=== PATIENT | male | born 1975 | race Two or more races ===

== ENCOUNTER 2019-01-21 10:07 | Emergency (ER) | payer SELFPAY ==
--- NOTE | 2019-01-21 11:29 | EDM.PDOC ---
ED HPI GENERAL MEDICAL PROBLEM - General Chief Complaint: Lower Extremity Injury/Pain Stated Complaint: HIP PAIN Time Seen by Provider: 01/21/19 10:39 Source of Information: Reports: Patient, RN Notes Reviewed - History of Present Illness INITIAL COMMENTS - FREE TEXT/NARRATIVE: 43-year-old male comes in with discomfort, left hip for 4 days. Actually upon further questioning the pain is primarily the outside and posterior aspect of the hip, especially over the tibial tuberosity area of his pelvis and buttock on the left. He did start running on a treadmill about 7 ago, walking and running hard at times. He has stopped doing that but the pain has not gone away. No pain at rest but severe pain with standing and especially walking and any other type of motion. He has never done anything like this before. Left Hip Pain Score (Numeric/FACES): 9 - Related Data Allergies Allergy/AdvReac Type Severity Reaction Status Date / Time No Known Allergies Allergy Verified 01/21/19 10:20 Home Meds: Home Meds Acetaminophen/HYDROcodone [[place] 325-5 MG] 1 tab PO Q8HR PRN #14 tablet [Rx] Past Medical History Musculoskeletal History: Reports: Fracture Neurological History: Reports: Headaches, Chronic - Infectious Disease History Infectious Disease History: Reports: Chicken Pox Social & Family History - Tobacco Use Smoking Status *Q: Current Every Day Smoker Years of Tobacco use: 24 Packs/Tins Daily: 0.5 Second Hand Smoke Exposure: No - Caffeine Use Caffeine Use: Reports: Coffee - Recreational Drug Use Recreational Drug Use: No Review of Systems - Review of Systems Review Of Systems: See Below Respiratory: Denies: Shortness of Breath Cardiovascular: Denies: Chest Pain Musculoskeletal: Reports: Back Pain, Joint Pain (Left hip), Other Skin: Reports: No Symptoms (Inferior buttock area) Neurological: Denies: Numbness, Tingling ED EXAM, GENERAL - Physical Exam Exam: See Below General Appearance: Alert, Mild Distress Head: Atraumatic Neck: Supple Extremities: Other (Tender left lateral hip, left posterior buttock especially over the icheal tuberosity). No: Joint Swelling Neurological: Alert, No Motor/Sensory Deficits Skin Exam: Warm, Dry Course - Vital Signs Last Recorded V/S: Last Vital Signs Temp 97.4 F 01/21/19 11:40 Pulse 82 03/21/19 11:40 Resp 20 01/21/19 11:40 BP 108/72 01/21/19 11:40 Pulse Ox 100 01/21/19 11:40 - Re-Assessments/Exams Free Text/Narrative Re-Assessment/Exam: 01/21/19 19:21 X-ray of the left hip and pelvis is normal Departure - Departure Time of Disposition: 11:26 Disposition: Home, Self-Care 01 Condition: Fair Clinical Impression: Trochanteric bursitis of left hip - Discharge Information Prescriptions: Acetaminophen/HYDROcodone [[place] 325-5 MG] 1 tab PO Q8HR PRN #14 tablet PRN Reason: Pain Instructions: Trochanteric Bursitis Referrals: PCP,None [Primary Care Provider] - Forms: ED Department Discharge Additional Instructions: Rest leg and hip, increase activity slowly as tolerated, Advil or ibuprofen 600 mg 3 times daily with food, you may take Tylenol in between doses for extra pain relief or hydrocodone if needed for severe pain, do not drive when taking hydrocodone. Also alternating ice and heat to area of discomfort will help. Follow-up at our [facility] medical clinic if not much better within 3-5 days as expected, call [phone] if needed for appointment.
--- NOTE | 2019-01-21 11:45 | CR ---
Pelvis and left hip: AP view of the pelvis was obtained as well as AP and frog-leg lateral views of the left hip. Comparison: No prior study. Joint spaces within both hips are maintained. Sacroiliac joints appear within normal limits. No fracture or other bony abnormality is seen. Impression: 1. No abnormality is identified on AP pelvis or on two-view left hip exam. Diagnostic code #1
== END 2019-01-21 11:40 | disposition home or self-care (01) ==
LOC: JD.ED 10:07
DX: M70.62 Trochanteric bursitis, left hip (principal); F17.210 Nicotine dependence, cigarettes, uncomplicated
CPT/HCPCS: 73502-26-LT; 73502-LT; 99283; 99283-25

== ENCOUNTER 2020-04-13 18:28 | Inpatient (IN) | payer MEDICAID ==
[2020-04-13] MEDS ORDERED: Sodium Chloride 0.9% 10 ML Syringe FLUSH PRN (18:42)
[2020-04-13] MEDS ORDERED: Diphtheria,Pertussis(Acell),Tetanus Vaccine 0.5 ML Syringe IM ONE (18:44)
[2020-04-13] MEDS ORDERED: Lactated Ringers 1,000 ML IV SCH (18:45)
[2020-04-13] MEDS ORDERED: Lactated Ringers 1,000 ML IV ONE (18:46)
--- NOTE | 2020-04-13 18:54 | EDM.PDOC ---
ED HPI GENERAL MEDICAL PROBLEM - General Source of Information: Reports: Patient, EMS History Limitations: Reports: No Limitations - History of Present Illness Onset: Sudden Duration: Minutes: Location: Reports: Head Quality: Reports: Sharp Severity: Moderate Improves with: Reports: None Worsens with: Reports: None Associated Symptoms: Reports: Headaches. Denies: Chest Pain, Cough, Fever/ Chills, Nausea/Vomiting, Shortness of Breath Head Pain Score (Numeric/FACES): 10 <Ravinder Segura - Last Filed: 04/13/20 19:19> <Jerod Philippe - Last Filed: 04/14/20 04:03> - General Chief Complaint: Head Injury Stated Complaint: [facility] Time Seen by Provider: 04/13/20 18:42 - History of Present Illness INITIAL COMMENTS - FREE TEXT/NARRATIVE: The patient presents by [facility] for a head injury. He walked into a local hotel and collapsed hitting his head. He has a laceration to the right eyebrow. He was out for about 5 minutes. When he woke up he was agitated and shaking. Family that were there say he drinks heavily and daily and he may not have had a drink in a couple of days. He has a headache now. He is not sure of his tetanus. He has no fever, chills, cough, chest pain, abdominal pain, nausea or vomiting. (Ravinder Segura) - Related Data Allergies Allergy/AdvReac Type Severity Reaction Status Date / Time No Known Allergies Allergy Verified 04/13/20 18:40 Home Meds: Home Meds . [No Known Home Meds] 04/13/20 [History] Past Medical History HEENT History: Reports: None Cardiovascular History: Reports: None Respiratory History: Reports: None Gastrointestinal History: Reports: None Genitourinary History: Reports: None Musculoskeletal History: Reports: Fracture Neurological History: Reports: Headaches, Chronic Psychiatric History: Reports: Addiction Endocrine/Metabolic History: Reports: None Hematologic History: Reports: None Immunologic History: Reports: None Oncologic (Cancer) History: Reports: None Dermatologic History: Reports: None - Infectious Disease History Infectious Disease History: Reports: Chicken Pox <Ravinder Segura - Last Filed: 04/13/20 19:19> Social & Family History - Tobacco Use Smoking Status *Q: Never Smoker - Caffeine Use Caffeine Use: Reports: None - Recreational Drug Use Recreational Drug Use: No <Ravinder Segura - Last Filed: 04/13/20 19:19> ED ROS GENERAL - Review of Systems Review Of Systems: See Below Constitutional: Reports: No Symptoms HEENT: Reports: Other (4cm laceration to the right eyebrow) Respiratory: Reports: No Symptoms Cardiovascular: Reports: No Symptoms Endocrine: Reports: No Symptoms GI/Abdominal: Reports: No Symptoms : Reports: No Symptoms Musculoskeletal: Reports: No Symptoms Neurological: Reports: Other (shaking) <Ravinder Segura - Last Filed: 04/13/20 19:19> ED EXAM, HEAD INJURY - Physical Exam Exam: See Below Exam Limited By: No Limitations General Appearance: Alert, No Apparent Distress Head: Normocephalic, Other (3cm laceration to the right eyebrow) Eyes: Bilateral Eye: EOMI Ears: Normal External Exam Nose: Normal Inspection Neck: Non-Tender, Normal Alignment, Normal Inspection Respiratory: No Respiratory Distress, Lungs Clear, Normal Breath Sounds Cardiovascular: Regular Rate, Rhythm, No Edema, No Murmur GI/Abdominal Exam: Soft, Non-Tender, No Organomegaly, No Mass Neurologic: Alert, Other (He is a little confused and he is shaking) <Ravinder Segura - Last Filed: 04/13/20 19:19> Course <Ravinder Segura - Last Filed: 04/13/20 19:19> <Jerod Philippe - Last Filed: 04/14/20 04:03> - Vital Signs Last Recorded V/S: Last Vital Signs Temp 35.4 C L 04/13/20 18:34 Pulse 100 04/13/20 23:00 Resp 15 04/13/20 22:18 BP 114/87 04/13/20 18:34 Pulse Ox 100 04/13/20 23:00 - Orders/Labs/Meds Orders: Active Orders 24 hr Category Date Time Status Cardiac Monitoring [RC] . DIRECTED Care 04/13/20 18:43 Active EKG Documentation Completion [RC] ASDIRECTED Care 04/13/20 18:51 Active Peripheral IV Care [RC] . DIRECTED Care 04/13/20 18:43 Active Vaccines to be Administered [RC] PER UNIT ROUTINE Care 04/13/20 18:44 Active Sodium Chloride 0.9% [Saline Flush] Med 04/13/20 18:42 Active 10 ml FLUSH ASDIRECTED PRN Peripheral IV Insertion Adult [OM.PC] Stat Oth 04/13/20 18:42 Ordered EKG 12 Lead [EK] Stat Ther 04/13/20 18:50 Ordered Medication Orders Sodium Chloride (Saline Flush) 10 ml FLUSH ASDIRECTED PRN PRN Reason: Keep Vein Open Last Admin: 04/13/20 21:37 Dose: 10 ml Labs: Laboratory Tests 04/13/20 04/13/20 04/14/20 Range/Units 19:10 19:10 00:30 WBC 8.17 (4.23-9.07) K/mm3 RBC 4.58 L (4.63-6.08) M/mm3 Hgb 14.9 (13.7-17.5) gm/dl Hct 43.6 (40.1-51.0) % MCV 95.2 H (79.0-92.2) fl MCH 32.5 H (25.7-32.2) pg MCHC 34.2 (32.2-35.5) g/dl RDW Std Deviation 47.1 H (35.1-43.9) fL Plt Count 143 L (163-337) K/mm3 MPV 11.0 (9.4-12.3) fl Neut % (Auto) 76.0 H (34.0-67.9) % Lymph % (Auto) 14.9 L (21.8-53.1) % [place] % (Auto) 8.3 (5.3-12.2) % Eos % (Auto) 0.2 L (0.8-7.0) Baso % (Auto) 0.4 (0.1-1.2) % Neut # (Auto) 6.20 H (1.78-5.38) K/mm3 Lymph # (Auto) 1.22 L (1.32-3.57) K/mm3 [place] # (Auto) 0.68 (0.30-0.82) K/mm3 Eos # (Auto) 0.02 L (0.04-0.54) K/mm3 Baso # (Auto) 0.03 (0.01-0.08) K/mm3 Sodium 141 (136-145) mEq/L Potassium 3.9 (3.5-5.1) mEq/L Chloride 104 (98-107) mEq/L Carbon Dioxide 20 L (21-32) mEq/L Anion Gap 20.9 H (5-15) BUN 15 (7-18) mg/dL Creatinine 1.4 H (0.7-1.3) mg/dL Est Cr Clr Drug Dosing 68.69 mL/min Estimated GFR (MDRD) 55 (>60) mL/min BUN/Creatinine Ratio 10.7 L (14-18) Glucose 158 H (74-106) mg/dL Calcium 9.2 (8.5-10.1) mg/dL Magnesium 2.3 (1.8-2.4) mg/dl Total Bilirubin 1.1 H (0.2-1.0) mg/dL AST 284 H (15-37) U/L ALT 297 H (16-63) U/L Alkaline Phosphatase 80 (46-116) U/L Total Protein 7.4 (6.4-8.2) g/dl Albumin 3.9 (3.4-5.0) g/dl Globulin 3.5 gm/dL Albumin/Globulin Ratio 1.1 (1-2) Urine Opiates Screen Negative (UIDKTT=352) Ur Buprenorphine Scrn Negative (CUTOFF=10) Ur Oxycodone Screen Negative (TXE1OY=747) Urine Methadone Screen Negative (QUO6NE=316) Ur Propoxyphene Screen Negative (YWOSWS=960) Ur Barbiturates Screen Negative (TCPRVO=104) Ur Tricyclics Screen Negative (AESVNU=799) Ur Phencyclidine Scrn Negative (CUTOFF=25) Ur Amphetamine Screen Negative (WAWACZ=182) U Methamphetamines Scrn Negative (WYTVZA=778) U Benzodiazepines Scrn Presumptive positive H (DYXJWH=954) U Cocaine Metab Screen Negative (MIZJZS=767) U Marijuana (THC) Screen Negative (CUTOFF=50) Ethyl Alcohol 0.00 (0.00) gm% Meds: Medications Generic Name Dose Route Start Last Admin Trade Name Freq PRN Reason Stop Dose Admin Sodium Chloride 10 ml 04/13/20 18:42 04/13/20 21:37 Saline Flush FLUSH 10 ml ASDIRECTED PRN Administration Keep Vein Open Discontinued Medications Generic Name Dose Route Start Last Admin Trade Name Freq PRN Reason Stop Dose Admin Diphenhydramine HCl 50 mg 04/13/20 20:02 04/13/20 20:02 Benadryl IVPUSH 04/13/20 20:03 50 mg ONETIME ONE Administration Diphenhydramine HCl Confirm 04/13/20 20:02 04/13/20 21:37 Benadryl Administered 04/13/20 20:03 Not Given Dose 50 mg .ROUTE .STK-MED ONE Diphenhydramine HCl 50 mg 04/14/20 03:29 Benadryl IVPUSH 04/14/20 03:30 ONETIME ONE Diphtheria/Tetanus/Acell Pertussis 0.5 ml 04/13/20 18:44 Adacel IM 04/13/20 18:45 .ONCE ONE Lactated Ringer's 1,000 mls @ 125 mls/hr 04/13/20 18:45 Ringers, Lactated IV ASDIRECTED CITLALLI Lactated Ringer's 1,000 mls @ 1,000 mls/hr 04/13/20 18:46 04/13/20 19:25 Ringers, Lactated IV 04/13/20 19:45 1,000 mls/hr .BOLUS ONE Administration Lidocaine HCl Confirm 04/14/20 00:41 Xylocaine 1% Administered 04/14/20 00:42 Dose 10 ml .ROUTE .STK-MED ONE Lorazepam 2 mg 04/13/20 19:29 04/13/20 19:34 Ativan IVPUSH 04/13/20 19:30 2 mg ONETIME ONE Administration Lorazepam Confirm 04/13/20 19:28 04/13/20 19:34 Ativan Administered 04/13/20 19:29 Not Given Dose 2 mg .ROUTE .STK-MED ONE Lorazepam 2 mg 04/13/20 19:49 04/13/20 19:52 Ativan IVPUSH 04/13/20 19:50 2 mg ONETIME ONE Administration Lorazepam 2 mg 04/13/20 21:35 04/13/20 19:47 Ativan IVPUSH 04/13/20 21:36 2 mg ONETIME ONE Administration Lorazepam 2 mg 04/14/20 02:05 04/14/20 03:03 Ativan IVPUSH 04/14/20 02:06 2 mg ONETIME ONE Administration Lorazepam Confirm 04/14/20 02:06 Ativan Administered 04/14/20 02:07 Dose 2 mg .ROUTE .STK-MED ONE Lorazepam Confirm 04/14/20 03:51 Ativan Administered 04/14/20 03:52 Dose 4 mg .ROUTE .STK-MED ONE Midazolam HCl Confirm 04/14/20 03:42 Versed 1 Mg/Ml Administered 04/14/20 03:43 Dose 2 mg .ROUTE .STK-MED ONE Midazolam HCl Confirm 04/14/20 03:45 Versed 1 Mg/Ml Administered 04/14/20 03:46 Dose 4 mg .ROUTE .STK-MED ONE Olanzapine 5 mg 04/13/20 19:51 04/13/20 19:51 Zyprexa IM 04/13/20 19:52 5 mg ONETIME ONE Administration Olanzapine Confirm 04/13/20 19:51 04/13/20 21:37 Zyprexa Administered 04/13/20 19:52 Not Given Dose 10 mg .ROUTE .STK-MED ONE Olanzapine 5 mg 04/14/20 02:05 04/14/20 03:03 Zyprexa IM 04/14/20 02:06 5 mg ONETIME ONE Administration - Re-Assessments/Exams Free Text/Narrative Re-Assessment/Exam: 04/13/20 18:54 I ordered an IV LR 1L bolus, CT, labs and I will suture the laceration. 04/13/20 19:19 It is change of shift, Dr Philippe to take over. (Ravinder Segura) Free Text/Narrative Re-Assessment/Exam: 04/14/20 01:49 The burst laceration of the patient's face in the area of his right eyebrow was sutured. After preparation anesthesia with 8 mL of plain 1% lidocaine. Sterile technique. Closure with 3 simple interrupted 4-0 black nylon sutures. Patient tolerated well. No complications. The patient's movement and poor cooperation mitigated against more fastidious plastic closure. (Jerod Philippe) Free Text/Narrative Re-Assessment/Exam: 04/14/20 04:01 Would appear that the patient is withdrawing from alcohol and has been in full- blown delirium tremens. Drug screen is essentially negative and there is a possibility that he may be under the influence of something undetectable. In any event he has been managed in the emergency department with a view to being able to discharge him to home but he continues to require constant attention and frequent sedation. Discussed with Dr. Jacome. She will admit him to the ICU for further management. Discussed with the patient's father present at bedside who agrees with the plan. (Jerod Philippe) Departure <Ravinder Segura - Last Filed: 04/13/20 19:19> - Departure Time of Disposition: 04:02 Condition: Poor <Jerod Philippe - Last Filed: 04/14/20 04:03> - Departure Disposition: Admitted As Inpatient 67 Clinical Impression: Delirium tremens, Alcohol abuse Laceration of face Qualifiers: Encounter type: initial encounter Qualified Code(s): S01.81XA - Laceration without foreign body of other part of head, initial encounter - Discharge Information Referrals: PCP,None [Primary Care Provider] - Forms: ED Department Discharge Sepsis Event Note (ED) - Evaluation Sepsis Screening Result: No Definite Risk <Ravinder Segura - Last Filed: 04/13/20 19:19> - Focused Exam Vital Signs: Vital Signs Temp Pulse Pulse Resp BP Pulse Ox 04/13/20 23:00 100 100 04/13/20 22:18 94 15 100 04/13/20 22:00 103 H 17 100 04/13/20 21:00 101 H 17 99 04/13/20 20:27 132 H 19 96 04/13/20 18:34 35.4 C L 144 H 24 H 114/87 96
--- NOTE | 2020-04-13 19:22 | CT ---
Head CT Technique: Multiple axial sections through the brain were obtained. Intravenous contrast was not utilized. Comparison: No prior intracranial imaging is available. Limitations: Motion artifact is noted. Findings: Ventricles along with basal cisterns and sulci over the convexities appear within normal limits for the patient's age. No abnormal parenchymal densities are seen. No evidence of intracranial hemorrhage. No midline shift or mass-effect is seen. Bone window settings were reviewed which shows no discrete calvarial abnormality. Visualized paranasal sinuses and mastoid sinuses show nothing acute. Impression: 1. Motion artifact. Within this limitation, nothing acute is definitely appreciated on noncontrast head CT exam. Diagnostic code #2 This report was dictated in MDT
[2020-04-13] MEDS ORDERED: LORazepam 2 MG/ML SDV ONE (19:28)
[2020-04-13] MEDS ORDERED: LORazepam 2 MG/ML SDV IVPUSH ONE ×3 (19:29→21:35)
[2020-04-13] MEDS ORDERED: OLANZapine 10 MG Vial ONE (19:51)
[2020-04-13] MEDS ORDERED: OLANZapine 10 MG Vial IM ONE (19:51)
[2020-04-13] MEDS ORDERED: diphenhydrAMINE 50 MG/ML SDV IVPUSH ONE (20:02)
[2020-04-13] MEDS ORDERED: diphenhydrAMINE 50 MG/ML SDV ONE (20:02)
[2020-04-14] MEDS ORDERED: Lidocaine 1% 10 ML MDV ONE (00:41)
[2020-04-14] MEDS ORDERED: LORazepam 2 MG/ML SDV IVPUSH ONE ×3 (02:05→14:00)
[2020-04-14] MEDS ORDERED: OLANZapine 10 MG Vial IM ONE (02:05)
[2020-04-14] MEDS ORDERED: LORazepam 2 MG/ML SDV ONE ×2 (02:06→03:51)
[2020-04-14] MEDS ORDERED: diphenhydrAMINE 50 MG/ML SDV IVPUSH ONE (03:29)
[2020-04-14] MEDS ORDERED: Midazolam 1 MG/ML 2 ML SDV ONE ×2 (03:42→03:45)
[2020-04-14] MEDS ORDERED: Midazolam 1 MG/ML 2 ML SDV IVPUSH ONE ×2 (04:01→09:14)
[2020-04-14] MEDS: LORazepam 2 MG/ML SDV IVPUSH PRN ×3 (07:41→08:30)
[2020-04-14] MEDS ORDERED: Ondansetron 4 MG/2 ML SDV IV PRN (08:32)
[2020-04-14] MEDS ORDERED: Etomidate 2 MG/ML 20 ML SDV IVPUSH ONE ×3 (09:19→14:05)
[2020-04-14] MEDS ORDERED: Succinylcholine 200 MG/10 ML MDV IV ONE (09:20)
[2020-04-14] MEDS ORDERED: MAGNESIUM SULFATE IV ONE (09:30)
[2020-04-14] MEDS ORDERED: FOLIC ACID IV ONE (09:30)
[2020-04-14] MEDS ORDERED: THIAMINE IV ONE (09:30)
[2020-04-14] MEDS ORDERED: [UNRECOGNIZED DRUG - OTHER] IV ONE (09:30)
[2020-04-14] MEDS ORDERED: Ketamine 500 mg/10 ML MDV IV ONE ×2 (09:38→14:05)
[2020-04-14] MEDS ORDERED: Midazolam 1 MG/ML 5 ML SDV IVPUSH ONE ×2 (09:38→14:00)
[2020-04-14] MEDS: fentaNYL 100 MCG/2 ML SDV IVPUSH ONE ×2 (09:38→13:10)
[2020-04-14] MEDS: fentaNYL 2500 MCG in Normal Saline 250 ML IV SCH ×2 (09:44→22:10)
[2020-04-14] MEDS: Midazolam 100 MG in Premix Bag 1 BAG IV SCH ×2 (09:45→18:39)
--- NOTE | 2020-04-14 09:58 | CR ---
Chest: AP view of the chest was obtained. Comparison: No prior chest imaging is available. Endotracheal tube is seen. Tip lies at the lower level of the clavicles. Nasogastric tube is seen. Tip of the nasogastric tube lies at the gastroesophageal junction or possibly above the gastroesophageal junction. Heart size and mediastinum are normal. Lungs are clear with no acute parenchymal change. Impression: 1. Satisfactory position of endotracheal tube. 2. Nasogastric tube at the gastroesophageal junction or possibly slightly above. Diagnostic code #3 This report was dictated in MDT
[2020-04-14] MEDS: Nicotine 21 MG/24 Hr Patch TRDERM SCH (10:42)
[2020-04-14] MEDS: Enoxaparin 40 MG/0.4 ML Syringe SUBCUT SCH (10:42)
--- NOTE | 2020-04-14 10:42 | PCM.PRNOTE ---
- Free Text/Narrative Note: Endotracheal Intubation Date: 04/14/2020 Indication: Airway protection due to high requirement of sedation medications for alcohol withdrawal symptoms Attending: Ivis Jacome MD A time-out was completed verifying correct patient, procedure, site, positioning , and special equipment if applicable. The patient was placed in a flat position. Sedation was obtained using Etomidate and Succinylcholine. The patient was easily ventilated using an Ambu bag. The MAC 4 BLADE was used and inserted into the oropharynx at which time there was a Grade 1 view of the vocal cords. A 7-cameroonian endotracheal tube was inserted and visualized going through the vocal cords. The stylette was removed. Colorimetric change was visualized on the CO2 meter. Breath sounds were heard in both lung tyler equally. The endotracheal tube was placed at 25 cm, measured at the teeth. A chest x-ray was ordered to assess forpneumothoraxand verifyendotracheal tube placement. Repositioned at 24cm at teeth. Estimated Blood Loss: None The patient tolerated the procedure well and there were no complications.
--- NOTE | 2020-04-14 10:42 | PCM.HP.2 ---
H&P History of Present Illness - General Date of Service: 04/14/20 Admit Problem/Dx: Admission Diagnosis/Problem Admission Diagnosis/Problem Alcohol abuse with alcohol-induced disorder - History of Present Illness Initial Comments - Free Text/Narative: The patient presents by [facility] for a head injury. He walked into a local hotel and collapsed hitting his head. He has a laceration to the right eyebrow. He was out for about 5 minutes. When he woke up he was agitated and shaking. Dad states patient has been drinking at least 300 beers in the past 3 weeks, he did notice his hands shaking a couple of days ago and asked him what was happening patient stated all was ok. He did not see any more shaking the day after. Head Pain Score (Numeric/FACES): 10 - Related Data Allergies/Adverse Reactions: Allergies Allergy/AdvReac Type Severity Reaction Status Date / Time No Known Allergies Allergy Verified 04/13/20 18:40 Home Medications: Home Meds . [No Known Home Meds] 04/13/20 [History] Past Medical History HEENT History: Reports: None Cardiovascular History: Reports: None Respiratory History: Reports: None Gastrointestinal History: Reports: None Genitourinary History: Reports: None Musculoskeletal History: Reports: Fracture Neurological History: Reports: Headaches, Chronic Psychiatric History: Reports: Addiction Endocrine/Metabolic History: Reports: None Hematologic History: Reports: None Immunologic History: Reports: None Oncologic (Cancer) History: Reports: None Dermatologic History: Reports: None - Infectious Disease History Infectious Disease History: Reports: Chicken Pox Social & Family History - Tobacco Use Smoking Status *Q: Never Smoker - Caffeine Use Caffeine Use: Reports: None - Recreational Drug Use Recreational Drug Use: No H&P Review of Systems - Review of Systems: Review Of Systems: Unable To Obtain Reason Not Obtained: severe agitation due to alcohol withdrawal Exam - Exam Exam: See Below - Vital Signs Vital Signs: Last Vital Signs Temp 97 F 04/14/20 08:00 Pulse 100 04/13/20 23:00 Resp 14 04/14/20 08:00 BP 105/79 04/14/20 08:00 Pulse Ox 97 04/14/20 09:46 Weight: 67.585 kg - Exam General: Lethargic. No: Cooperative HEENT: Mucosa Moist & [place]. No: Conjunctiva Clear (injected) Neck: Supple, Trachea Midline Lungs: Decreased Breath Sounds, Crackles. No: Rales, Rhonchi, Rub, Stridor, Wheezing Cardiovascular: Regular Rhythm, Tachycardia. No: Systolic Murmur, Diastolic Murmur, Rubs, Gallop/S3, Gallop/S4 GI/Abdominal Exam: Soft, Non-Tender. No: Distended, Guarding, Rigid, Rebound Extremities: Normal Inspection, No Pedal Edema, Normal Capillary Refill Neuro Extensive - Mental Status: Other (CIWAA 42) - Patient Data Result Diagrams: 04/14/20 08:48 04/14/20 08:48 Sepsis Event Note - Evaluation Sepsis Screening Result: No Definite Risk - Problem List (1) Alcohol withdrawal delirium, acute, hyperactive SNOMED Code(s): 2997557, 03019750, 70309690865110349 ICD Code: F10.231 - ALCOHOL DEPENDENCE WITH WITHDRAWAL DELIRIUM Status: Acute Current Visit: Yes (2) Alcohol abuse SNOMED Code(s): 94883954 ICD Code: F10.10 - ALCOHOL ABUSE, UNCOMPLICATED Status: Acute Current Visit: Yes (3) Delirium tremens SNOMED Code(s): 0063880 ICD Code: F10.231 - ALCOHOL DEPENDENCE WITH WITHDRAWAL DELIRIUM Status: Acute Current Visit: Yes (4) Laceration of face SNOMED Code(s): 520658670 ICD Code: S01.81XA - LACERATION W/O FOREIGN BODY OF OTH PART OF HEAD, INIT ENCNTR Status: Acute Current Visit: Yes Qualifiers: Encounter type: initial encounter Qualified Code(s): S01.81XA - Laceration without foreign body of other part of head, initial encounter (5) Thrombocytopenia SNOMED Code(s): 059048747 ICD Code: D69.6 - THROMBOCYTOPENIA, UNSPECIFIED Status: Acute Current Visit: Yes (6) High anion gap metabolic acidosis SNOMED Code(s): 37229170 ICD Code: E87.2 - ACIDOSIS Status: Acute Current Visit: Yes (7) Acute kidney injury SNOMED Code(s): 67518041, 64784792 ICD Code: N17.9 - ACUTE KIDNEY FAILURE, UNSPECIFIED Status: Acute Current Visit: Yes (8) Abnormal LFTs SNOMED Code(s): 142617466 ICD Code: R94.5 - ABNORMAL RESULTS OF LIVER FUNCTION STUDIES Status: Acute Current Visit: Yes Problem List Initiated/Reviewed/Updated: Yes Assessment/Plan Comment:: PLAN BY SYSTEMS: Neurology: CIWAA protocol with PRN Ativan Frequent neurologic exams by nursing staff. Respiratory: Aspiration precautions Cardiovascular: IVF repletion Banana bag today. GI and Nutrition: NPO Kidney and Electrolytes: Strict monitoring of intake, output and overall fluid balance. Maintain neutral as possible. Avoid nephrotoxic medications. Medications to be dosed according to renal function. Monitor electrolytes and replace as needed. Trend creatinine and BUN. Endocrine: Scheduled Accu-checks. Hypoglycemia protocol in place. Infectious Disease: Trend temperature. Panculture if febrile. Hematology and Coagulation: No active bleeding, no coagulopathy to correct, no need to transfuse blood products at the moment. Goal hemoglobin >7g Musculoskeletal and Skin: Bed turn rotation by nursing staff. Daily evaluation for pressure ulcers. PROPHYLAXIS: DVT- Lovenox GI- not indicated CODE STATUS: FULL CODE DISPOSITION: Will be admitted for CIWAA protocol in the ICU. - Mortality Measure Prognosis:: Good
[2020-04-14] MEDS: Pantoprazole 40 MG Vial IVPUSH SCH (10:43)
[2020-04-14] MEDS: Lactated Ringers 1,000 ML IV SCH ×2 (10:59→18:36)
[2020-04-14] MEDS ORDERED: Ketamine 500 mg/10 ML MDV IM ONE (14:05)
[2020-04-14] MEDS ORDERED: Propofol 200 MG/20 ML SDV IVPUSH ONE (14:08)
[2020-04-14] MEDS: propofoL 100 ML IV SCH (14:15)
[2020-04-15] MEDS: Midazolam 100 MG in Premix Bag 1 BAG IV SCH ×3 (01:38→19:27)
[2020-04-15] MEDS: Lactated Ringers 1,000 ML IV SCH ×3 (02:40→19:28)
[2020-04-15] MEDS: propofoL 100 ML IV SCH ×3 (02:51→19:27)
[2020-04-15] MEDS: fentaNYL 2500 MCG in Normal Saline 250 ML IV SCH ×2 (09:07→18:52)
[2020-04-15] MEDS: Nicotine 21 MG/24 Hr Patch TRDERM SCH (09:38)
[2020-04-15] MEDS: Enoxaparin 40 MG/0.4 ML Syringe SUBCUT SCH (09:40)
[2020-04-15] MEDS ORDERED: Furosemide 20 MG/2 ML VIAL IVPUSH STA (09:52)
[2020-04-15] MEDS ORDERED: Thiamine 1,000 MG, Folic Acid 1 MG in Dextrose 5%-0.9% NaCl 1,000 ML IV ONE (10:00)
[2020-04-15] MEDS: Pantoprazole 40 MG Vial IVPUSH SCH (10:54)
--- NOTE | 2020-04-15 11:24 | PCM.PN ---
- General Info Date of Service: 04/15/20 Subjective Update: INTERVAL HISTORY Overnight Events: - Decreased urine output - Had an episode yesterday where he was awake and pulled his tube out, sedation was increased and patient became synchronic with ventilator again Vital Signs: MAP trend: 55-79 HR trend: 81-96x' Tmax: 97.7 SatO2: >95% Drips and IVF: Fentanyl @ 24mL Versed @ 13mL LR @ 125mls/hr Propofol at 11mL Banana bag at 75 Mechanical Ventilation: Intubation day: 04/14/2020 Mode: AC/VC Vt: 400 FiO2: 30 PEEP: 8 PIP:20 Pmean: 11 Pplateau: 17 I/E: 1:1.2 Vte: 396 Cstat:47 I/Os: UO: 1,650 24h balance: -324 NG tube output: 150 BM: unknown New results: K up from 3.4 to 4 GFR up from 55 to 60 Free water deficit 2L Diet: NPO Lines and tubes: Peters catheter 04/14/20 ETT: 04/14/20 - Patient Data Vitals - Most Recent: Last Vital Signs Temp 99.9 F 04/15/20 09:44 Pulse 100 04/13/20 23:00 Resp 12 04/15/20 09:00 BP 92/63 04/15/20 09:00 Pulse Ox 99 04/15/20 09:00 Weight - Most Recent: 72.575 kg - Exam Quality Assessment: Supplemental Oxygen, Urine Catheter, DVT Prophylaxis General: Sedated HEENT: Pupils Equal, Pupils Reactive, Mucous Membr. Moist/[place] Neck: Supple, Trachea Midline Lungs: Crackles, Rales. No: Rhonchi, Rub, Stridor, Wheezing Cardiovascular: Regular Rate, Regular Rhythm. No: Murmurs, Gallops, Rubs GI/Abdominal Exam: Normal Bowel Sounds, Soft. No: Distended, Rigid Extremities: Normal Inspection, No Pedal Edema, Normal Capillary Refill Sepsis Event Note - Evaluation Sepsis Screening Result: No Definite Risk - Focused Exam Vital Signs: Vital Signs Temp Resp BP BP Pulse Ox Pulse Ox 04/15/20 09:44 99.9 F 04/15/20 09:00 100.5 F 12 92/63 99 04/15/20 08:33 98 04/15/20 08:00 100.8 F H 12 83/52 L 98 04/15/20 07:00 12 84/49 L 97 04/15/20 06:30 12 82/46 L 97 04/15/20 06:15 12 81/47 L 97 97 04/15/20 06:01 12 97 04/15/20 06:00 12 84/48 L 98 04/15/20 05:01 12 84/56 L 95 04/15/20 05:00 12 84/56 L 96 04/15/20 04:45 12 88/56 L 96 04/15/20 04:15 12 87/53 L 98 04/15/20 04:00 98.6 F 12 91/56 L 97 04/15/20 03:54 12 98 04/15/20 03:45 12 90/56 L 97 04/15/20 03:30 12 92/60 98 04/15/20 03:00 12 91/57 L 98 04/15/20 02:45 12 87/61 L 98 04/15/20 02:34 12 86/63 L 98 04/15/20 02:15 89/59 L 100 04/15/20 02:00 12 88/60 L 88/60 L 100 04/15/20 01:50 12 100 04/15/20 01:45 12 90/59 L 98 04/15/20 01:30 12 88/60 L 99 04/15/20 01:15 12 90/61 98 04/15/20 01:00 12 91/55 L 98 04/15/20 00:45 12 89/58 L 100 04/15/20 00:30 12 85/58 L 100 04/15/20 00:20 12 100 04/15/20 00:00 98.3 F 12 85/61 L 99 04/14/20 23:45 12 86/58 L 100 04/14/20 23:30 12 89/63 L 100 Date Exam was Performed: 04/15/20 Time Exam was Performed: 14:31 - Problem List & Annotations (1) Alcohol withdrawal delirium, acute, hyperactive SNOMED Code(s): 9605187, 67159838, 22493627489962830 Code(s): F10.231 - ALCOHOL DEPENDENCE WITH WITHDRAWAL DELIRIUM Status: Acute Current Visit: Yes (2) Alcohol abuse SNOMED Code(s): 81351257 Code(s): F10.10 - ALCOHOL ABUSE, UNCOMPLICATED Status: Acute Current Visit: Yes (3) Delirium tremens SNOMED Code(s): 6317122 Code(s): F10.231 - ALCOHOL DEPENDENCE WITH WITHDRAWAL DELIRIUM Status: Acute Current Visit: Yes (4) Laceration of face SNOMED Code(s): 351344175 Code(s): S01.81XA - LACERATION W/O FOREIGN BODY OF OTH PART OF HEAD, INIT ENCNTR Status: Acute Current Visit: Yes Qualifiers: Encounter type: initial encounter Qualified Code(s): S01.81XA - Laceration without foreign body of other part of head, initial encounter (5) Thrombocytopenia SNOMED Code(s): 654385110 Code(s): D69.6 - THROMBOCYTOPENIA, UNSPECIFIED Status: Acute Current Visit: Yes (6) High anion gap metabolic acidosis SNOMED Code(s): 56175532 Code(s): E87.2 - ACIDOSIS Status: Acute Current Visit: Yes (7) Acute kidney injury SNOMED Code(s): 06490842, 81697417 Code(s): N17.9 - ACUTE KIDNEY FAILURE, UNSPECIFIED Status: Acute Current Visit: Yes (8) Abnormal LFTs SNOMED Code(s): 305151638 Code(s): R94.5 - ABNORMAL RESULTS OF LIVER FUNCTION STUDIES Status: Acute Current Visit: Yes (9) Hypernatremia SNOMED Code(s): 111473336 Code(s): E87.0 - HYPEROSMOLALITY AND HYPERNATREMIA Status: Acute Current Visit: Yes - Problem List Review Problem List Initiated/Reviewed/Updated: Yes - Plan Plan:: PLAN BY SYSTEMS: Neurology: Continue sedation with FEntanyl, Versed and Propofol Goal RAAS -3 to -4 No sedation taper today Respiratory: Aspiration precautions ETT care by RT Regular suctioning and oral care Cardiovascular: IVF repletion Banana bag today. Goal MAP >50 GI and Nutrition: OG tube care Start Jevity 1.2 at 10ml/hr today Start free water flushes at 500 q6h Monitor residuals Kidney and Electrolytes: Strict monitoring of intake, output and overall fluid balance. Maintain neutral as possible. Avoid nephrotoxic medications. Medications to be dosed according to renal function. Monitor electrolytes and replace as needed. Trend creatinine and BUN. Endocrine: Scheduled Accu-checks. Hypoglycemia protocol in place. Infectious Disease: Trend temperature. Panculture if febrile. Hematology and Coagulation: No active bleeding, no coagulopathy to correct, no need to transfuse blood products at the moment. Goal hemoglobin >7g Musculoskeletal and Skin: Bed turn rotation by nursing staff. Daily evaluation for pressure ulcers. PROPHYLAXIS: DVT- Lovenox GI- not indicated CODE STATUS: FULL CODE DISPOSITION: Will remain admitted to ICU while intubated, will attempt sedation vacation tomorrow in AM.
[2020-04-15] MEDS ORDERED: Piperacillin/Tazobactam 4.5 GM in Sodium Chloride 0.9% 100 ML IV ONE (12:12)
[2020-04-15] MEDS ORDERED: Lactated Ringers 1,000 ML IV SCH (15:55)
[2020-04-15] MEDS: Piperacillin/Tazobactam 4.5 GM in Sodium Chloride 0.9% 100 ML IV SCH (19:32)
--- NOTE | 2020-04-15 20:33 | CR ---
Abdomen: Supine view of the abdomen was obtained. Nasogastric tube is seen with tip lying within the stomach slightly past the gastroesophageal junction. Bowel gas pattern is normal. Bony structures are grossly intact. No abnormal calcifications or discrete soft tissue abnormality is appreciated. Impression: 1. Tip of nasogastric tube within the stomach slightly past the gastroesophageal junction. 2. Supine abdominal x-ray is otherwise unremarkable. Diagnostic code #2 I agree with preliminary report issued by [facility] ([facility] preliminary report dictated on 04/1320, 2:34 PM Central Daylight Time) Study was dictated in MDT
--- NOTE | 2020-04-15 20:33 | CR ---
Chest: AP view of the chest was obtained. Comparison: Prior chest x-ray performed on 04/14/20. Nasogastric tube is seen. Tip lies within the stomach. Endotracheal tube is seen with tip lying approximately 2.7 cm above the demetrio. Slight atelectasis seen within the left lung base. Lungs otherwise are clear. Impression: 1. Endotracheal tube lying above the demetrio. 2. Nasogastric tube with tip lying in the stomach. 3. Mild atelectasis within the left lung base. Diagnostic code #2 I agree with preliminary report issued by [facility] ([facility] preliminary report dictated on 04/15/28, 2:35 PM Central Daylight Time) Study was dictated in MDT
--- NOTE | 2020-04-15 20:33 | CT ---
Head CT Technique: Multiple axial sections through the brain were obtained. Intravenous contrast was not utilized. Comparison: Prior head CT study of 04/13/20 is available. Findings: Ventricles along with basal cisterns and sulci over the convexities are within normal limits for the patient's age. No abnormal parenchymal densities are seen. No evidence of intracranial hemorrhage. No midline shift or mass effect is appreciated. Bone window settings were reviewed. No acute calvarial abnormality is seen. Air-fluid level noted within the right maxillary sinus. Other visualized paranasal sinuses are clear. Mastoid sinuses are clear. Impression: 1. Air-fluid level within the right maxillary sinus. This could represent acute sinusitis as well as retained secretions. 2. No acute intracranial abnormality is appreciated. Diagnostic code #2 I agree with preliminary report issued by [facility] ([facility] preliminary report dictated on 04/15/20, 3:56 PM Central Daylight Time) Study was dictated in MDT
[2020-04-16] MEDS: levETIRAcetam 1,000 MG in Sodium Chloride 0.9% 100 ML IV SCH ×3 (01:12→13:31)
[2020-04-16] MEDS: propofoL 100 ML IV SCH ×3 (02:20→21:10)
[2020-04-16] MEDS: Piperacillin/Tazobactam 4.5 GM in Sodium Chloride 0.9% 100 ML IV SCH ×3 (03:10→20:54)
[2020-04-16] MEDS: Lactated Ringers 1,000 ML IV SCH ×2 (03:16→13:35)
[2020-04-16] MEDS: Midazolam 100 MG in Premix Bag 1 BAG IV SCH ×2 (03:23→10:56)
[2020-04-16] MEDS ORDERED: Sodium Chloride 0.9% 0 ML ONE (08:27)
--- NOTE | 2020-04-16 09:59 | PCM.PN ---
- General Info Date of Service: 04/16/20 Subjective Update: INTERVAL HISTORY Overnight Events: - Seizure that required Ativan and was loaded on Keppra - CT head reported normal - Elevated CPK afterwards - New infiltrate on Xray with episodes of desaturation, diagnosed with aspiration pneumonia and started on Zosyn Vital Signs: MAP trend: 60-93 HR trend: 79-83x' Tmax: 100.8 SatO2: >94% Drips and IVF: Fentanyl @ 10mL Versed @ 7mL LR @ 100mls/hr Propofol at 30mL Mechanical Ventilation: Intubation day: 04/14/2020 Mode: AC/VC Vt: 400 FiO2: 50 I/Os: UO: 785 24h balance: +2935 NG tube output: none BM: unknown New results: Na 146 Cl 111 Iron 11 GFR up from 55 to 60 Free water deficit 1800 Diet: Jevity 1.2 at 10 Infectious Disease: Sputum culture 04/15 Blood culture 04/15 Zosyn, started 04/15 Lines and tubes: Peters catheter 04/14/20 ETT: 04/14/20 - Patient Data Vitals - Most Recent: Last Vital Signs Temp 98.5 F 04/16/20 08:00 Pulse 70 04/16/20 06:43 Resp 19 04/16/20 08:00 BP 111/55 L 04/16/20 08:00 Pulse Ox 100 04/16/20 08:00 Weight - Most Recent: 74.525 kg - Exam Quality Assessment: Supplemental Oxygen, Urine Catheter, DVT Prophylaxis General: Sedated HEENT: Pupils Equal, Mucous Membr. Moist/[place]. No: Pupils Reactive Neck: Supple, Trachea Midline, No JVD, No Thyromegaly. No: Lymphadenopathy Lungs: Decreased Breath Sounds, Crackles, Rales. No: Rhonchi, Rub, Stridor, Wheezing Cardiovascular: Regular Rate, Regular Rhythm. No: Murmurs, Gallops, Rubs GI/Abdominal Exam: Normal Bowel Sounds, Soft, Non-Tender. No: Distended, Guarding, Rigid, Rebound Extremities: Normal Inspection, No Pedal Edema, Normal Capillary Refill Peripheral Pulses: 2+: Radial (L), Radial (R), Dorsalis Pedis (L), Dorsalis Pedis (R) Skin: Warm, Dry Sepsis Event Note - Evaluation Sepsis Screening Result: No Definite Risk - Focused Exam Vital Signs: Vital Signs Temp Pulse Resp BP Pulse Ox Pulse Ox 04/16/20 08:00 98.5 F 19 111/55 L 100 04/16/20 06:43 97.4 F 70 18 105/75 100 04/16/20 06:12 18 100 04/16/20 06:00 69 109/71 04/16/20 05:00 71 18 113/73 100 04/16/20 04:00 96.9 F 79 18 99/67 99 100 04/16/20 03:00 81 99/74 04/16/20 02:00 87 97/61 04/16/20 01:36 18 100 04/16/20 01:00 82 18 100/65 100 04/16/20 00:10 18 100 04/16/20 00:00 97.0 F 78 18 92/58 L 100 04/15/20 22:59 79 18 93/63 100 04/15/20 22:09 100 04/15/20 22:04 18 100 04/15/20 22:00 97.0 F 80 18 96/63 100 Date Exam was Performed: 04/16/20 Time Exam was Performed: 19:01 - Problem List & Annotations (1) Alcohol withdrawal delirium, acute, hyperactive SNOMED Code(s): 5046262, 18483948, 32724321355999046 Code(s): F10.231 - ALCOHOL DEPENDENCE WITH WITHDRAWAL DELIRIUM Status: Acute Current Visit: Yes (2) Alcohol abuse SNOMED Code(s): 57583315 Code(s): F10.10 - ALCOHOL ABUSE, UNCOMPLICATED Status: Acute Current Visit: Yes (3) Delirium tremens SNOMED Code(s): 9223854 Code(s): F10.231 - ALCOHOL DEPENDENCE WITH WITHDRAWAL DELIRIUM Status: Acute Current Visit: Yes (4) Laceration of face SNOMED Code(s): 630482132 Code(s): S01.81XA - LACERATION W/O FOREIGN BODY OF OTH PART OF HEAD, INIT ENCNTR Status: Acute Current Visit: Yes Qualifiers: Encounter type: initial encounter Qualified Code(s): S01.81XA - Laceration without foreign body of other part of head, initial encounter (5) Thrombocytopenia SNOMED Code(s): 691538353 Code(s): D69.6 - THROMBOCYTOPENIA, UNSPECIFIED Status: Acute Current Visit: Yes (6) High anion gap metabolic acidosis SNOMED Code(s): 76862225 Code(s): E87.2 - ACIDOSIS Status: Acute Current Visit: Yes (7) Acute kidney injury SNOMED Code(s): 19884044, 25182780 Code(s): N17.9 - ACUTE KIDNEY FAILURE, UNSPECIFIED Status: Acute Current Visit: Yes (8) Abnormal LFTs SNOMED Code(s): 554573364 Code(s): R94.5 - ABNORMAL RESULTS OF LIVER FUNCTION STUDIES Status: Acute Current Visit: Yes (9) Hypernatremia SNOMED Code(s): 649381377 Code(s): E87.0 - HYPEROSMOLALITY AND HYPERNATREMIA Status: Acute Current Visit: Yes (10) Aspiration pneumonia SNOMED Code(s): 335573155 Code(s): J69.0 - PNEUMONITIS DUE TO INHALATION OF FOOD AND VOMIT Status: Acute Current Visit: Yes (11) Alcohol withdrawal seizure SNOMED Code(s): 505898314 Code(s): F10.239 - ALCOHOL DEPENDENCE WITH WITHDRAWAL, UNSPECIFIED; R56.9 - UNSPECIFIED CONVULSIONS Status: Acute Current Visit: Yes (12) Vitamin D deficiency SNOMED Code(s): 79583679 Code(s): E55.9 - VITAMIN D DEFICIENCY, UNSPECIFIED Status: Acute Current Visit: Yes (13) Iron deficiency SNOMED Code(s): 34342652 Code(s): E61.1 - IRON DEFICIENCY Status: Acute Current Visit: Yes - Problem List Review Problem List Initiated/Reviewed/Updated: Yes - Plan Plan:: PLAN BY SYSTEMS: Neurology: Continue sedation with Fentanyl, Versed and Propofol Goal RAAS -3 to -4 No sedation taper today Continue Keppra EEG tomorrow Respiratory: Aspiration precautions ETT care by RT Regular suctioning and oral care Zosyn Cardiovascular: IVF repletion Goal MAP >50 GI and Nutrition: OG tube care Start Jevity 1.2 at 10ml/hr today Start free water flushes at 450 q6h Monitor residuals Kidney and Electrolytes: Strict monitoring of intake, output and overall fluid balance. Maintain neutral as possible. Avoid nephrotoxic medications. Medications to be dosed according to renal function. Monitor electrolytes and replace as needed. Trend creatinine and BUN. Endocrine: Scheduled Accu-checks. Hypoglycemia protocol in place. Infectious Disease: Trend temperature. Panculture if febrile. Follow up on sputum and blood bultured on 04/15 Continue Zosyn Procalcitonin every 48h Hematology and Coagulation: No active bleeding, no coagulopathy to correct, no need to transfuse blood products at the moment. Goal hemoglobin >7g Musculoskeletal and Skin: Bed turn rotation by nursing staff. Daily evaluation for pressure ulcers. PROPHYLAXIS: DVT- Lovenox GI- not indicated CODE STATUS: FULL CODE DISPOSITION: Will remain admitted to ICU while intubated, will attempt sedation vacation tomorrow in AM.
[2020-04-16] MEDS: Pantoprazole 40 MG Vial IVPUSH SCH (10:15)
[2020-04-16] MEDS: Nicotine 21 MG/24 Hr Patch TRDERM SCH (10:15)
[2020-04-16] MEDS: Enoxaparin 40 MG/0.4 ML Syringe SUBCUT SCH (10:15)
[2020-04-16] MEDS: Sodium Chloride 0.9% 500 ML ONE ×2 (11:42→11:57)
[2020-04-16] MEDS ORDERED: Sodium Chloride 0.9% 500 ML IV ONE (11:53)
[2020-04-16] MEDS: fentaNYL 2500 MCG in Normal Saline 250 ML IV SCH (12:51)
[2020-04-16] MEDS ORDERED: Thiamine 100 MG in Sodium Chloride 0.9% 100 ML IV ONE (16:45)
[2020-04-16] MEDS ORDERED: MIDAZOLAM IV SCH ×2 (17:00→23:55)
[2020-04-16] MEDS ORDERED: Phenytoin 250 MG/5 ML SDV IVPUSH SCH (17:00)
[2020-04-16] MEDS: Dextrose 5%-Lactated Ringers 1,000 ML IV SCH (17:10)
[2020-04-16] MEDS ORDERED: Lactated Ringers 1,000 ML ONE (17:56)
[2020-04-16] MEDS ORDERED: Lactated Ringers 1,000 ML IV ONE ×2 (17:58)
[2020-04-16] MEDS: Folic Acid 50 MG/10 ML MDV IV SCH (19:41)
[2020-04-17] MEDS ORDERED: MIDAZOLAM IV SCH ×4 (00:07)
[2020-04-17] MEDS: Midazolam 100 MG in Premix Bag 1 BAG IV SCH ×3 (00:07→06:47)
[2020-04-17] MEDS: levETIRAcetam 1,000 MG in Sodium Chloride 0.9% 100 ML IV SCH ×2 (01:07→15:01)
[2020-04-17] MEDS: Dextrose 5%-Lactated Ringers 1,000 ML IV SCH ×3 (03:26→10:12)
[2020-04-17] MEDS: Piperacillin/Tazobactam 4.5 GM in Sodium Chloride 0.9% 100 ML IV SCH ×3 (03:27→19:43)
[2020-04-17] MEDS: propofoL 100 ML IV SCH ×4 (04:45→23:25)
[2020-04-17] MEDS: fentaNYL 2500 MCG in Normal Saline 250 ML IV SCH (04:46)
[2020-04-17] MEDS ORDERED: Phenytoin 250 MG in Sodium Chloride 0.9% 100 ML IV SCH (05:30)
--- NOTE | 2020-04-17 08:56 | PCM.PN ---
- General Info Date of Service: 04/17/20 Subjective Update: INTERVAL HISTORY Overnight Events: -None Vital Signs: MAP trend: 63-86 HR trend: 61-92x' Tmax: 98.3 SatO2: >95% Drips and IVF: Fentanyl @ 15mL Versed @ 10mL D5LR @ 150mls/hr Propofol at 35mL Mechanical Ventilation: Intubation day: 04/14/2020 Mode: AC/VC Vt: 400 FiO2: 28 PEEP: 6 PIP:20 Pmean: 10 Pplateau: 17 I/E: 1:2.3 Vte: 487 Cstat: 46 I/Os: UO: 2,450 24h balance: +2,153 Balance since admission: +5,088 NG tube output: 110 BM: unknown New results: Na 146 to 140 Cl 111 to 107 K 3.6 to 3.4 Hb 13.9 to 12.6 PO4 2.0 to 1.6 Mg 2 to 1.6 Iron 11 Vitamin D 16 Diet: Jevity 1.2 at 10, increase today Infectious Disease: Sputum culture 04/15: growing gram negative rods Blood culture 04/15 Zosyn, started 04/15 Lines and tubes: Peters catheter 04/14/20 ETT: 04/14/20 Arterial line: 04/16/2020 - Patient Data Vitals - Most Recent: Last Vital Signs Temp 97.2 F 04/17/20 04:54 Pulse 71 04/17/20 06:43 Resp 18 04/17/20 08:00 BP 109/62 04/17/20 08:00 Pulse Ox 100 04/17/20 08:00 Weight - Most Recent: 76.476 kg - Exam Quality Assessment: Supplemental Oxygen, Urine Catheter, DVT Prophylaxis. No: Central Line/PICC, Skin Breakdown, Restraints General: Sedated HEENT: Pupils Equal, Mucous Membr. Moist/[place]. No: Pupils Reactive Neck: Supple, Trachea Midline. No: Lymphadenopathy Lungs: Clear to Auscultation. No: Crackles, Rales, Rhonchi, Rub, Stridor, Wheezing Cardiovascular: Regular Rate, Regular Rhythm. No: Murmurs, Gallops, Rubs GI/Abdominal Exam: Soft, Distended, Abnormal Bowel Sounds (decreased in frequency and intensity). No: Rigid Extremities: Normal Inspection, Pedal Edema, Slow Capillary Refill Peripheral Pulses: 2+: Radial (L), Radial (R), Dorsalis Pedis (L), Dorsalis Pedis (R) Skin: Warm, Dry Sepsis Event Note - Evaluation Sepsis Screening Result: No Definite Risk - Problem List & Annotations (1) Alcohol withdrawal delirium, acute, hyperactive SNOMED Code(s): 8259043, 09622499, 63871625836030031 Code(s): F10.231 - ALCOHOL DEPENDENCE WITH WITHDRAWAL DELIRIUM Status: Acute Current Visit: Yes (2) Alcohol abuse SNOMED Code(s): 49036933 Code(s): F10.10 - ALCOHOL ABUSE, UNCOMPLICATED Status: Acute Current Visit: Yes (3) Delirium tremens SNOMED Code(s): 5694391 Code(s): F10.231 - ALCOHOL DEPENDENCE WITH WITHDRAWAL DELIRIUM Status: Acute Current Visit: Yes (4) Laceration of face SNOMED Code(s): 871205132 Code(s): S01.81XA - LACERATION W/O FOREIGN BODY OF OTH PART OF HEAD, INIT ENCNTR Status: Acute Current Visit: Yes Qualifiers: Encounter type: initial encounter Qualified Code(s): S01.81XA - Laceration without foreign body of other part of head, initial encounter (5) Thrombocytopenia SNOMED Code(s): 479696512 Code(s): D69.6 - THROMBOCYTOPENIA, UNSPECIFIED Status: Acute Current Visit: Yes (6) High anion gap metabolic acidosis SNOMED Code(s): 10036487 Code(s): E87.2 - ACIDOSIS Status: Acute Current Visit: Yes (7) Acute kidney injury SNOMED Code(s): 27375444, 38703662 Code(s): N17.9 - ACUTE KIDNEY FAILURE, UNSPECIFIED Status: Acute Current Visit: Yes (8) Abnormal LFTs SNOMED Code(s): 415060690 Code(s): R94.5 - ABNORMAL RESULTS OF LIVER FUNCTION STUDIES Status: Acute Current Visit: Yes (9) Hypernatremia SNOMED Code(s): 102448486 Code(s): E87.0 - HYPEROSMOLALITY AND HYPERNATREMIA Status: Acute Current Visit: Yes (10) Aspiration pneumonia SNOMED Code(s): 399728288 Code(s): J69.0 - PNEUMONITIS DUE TO INHALATION OF FOOD AND VOMIT Status: Acute Current Visit: Yes (11) Alcohol withdrawal seizure SNOMED Code(s): 529539859 Code(s): F10.239 - ALCOHOL DEPENDENCE WITH WITHDRAWAL, UNSPECIFIED; R56.9 - UNSPECIFIED CONVULSIONS Status: Acute Current Visit: Yes (12) Vitamin D deficiency SNOMED Code(s): 03316627 Code(s): E55.9 - VITAMIN D DEFICIENCY, UNSPECIFIED Status: Acute Current Visit: Yes (13) Iron deficiency SNOMED Code(s): 61702700 Code(s): E61.1 - IRON DEFICIENCY Status: Acute Current Visit: Yes - Problem List Review Problem List Initiated/Reviewed/Updated: Yes - Assessment Assessment:: 04/14/2020 - Brought in by EMS after fall with head trauma - Laceration in ED which was sutured - Ethanol level 0 with significantly elevated CIWAAs which required multiple Ativan doses with minimal response - Admitted to ICU - Banana bag #1 04/15/2020 - Severely agitated with no response to Ativan - Decision was made to intubate to preserve airway while controlling severe withdrawal symptoms - Borderline BP even with CIWAAs > 25 - Sedation with Versed and Fentanyl was insufficient and patient had an episode of arousal during which he pulled at his ETT, pulled it out about 2cm - Propofol was added to sedation regimen - Developed thick and foul smelling secretions--> sputum culture sent - Episode of seizure like movement with associated hypoxemia and elevated CPK-- > loaded on Keppra - Started on Zosyn to cover for aspiration pneumonia - Banan bag #2 - Started on trickle feeds with free water flushes due to water deficit and patient appeared to be regurgitating fluid - Abdomen and CXR performed and OG tube was found to be to high at EG junction--> pushed down 4cm 04/16/2020 - Number gupta met criteria for sepsis however patient's hypotension is not due to infection but due to sedation medications - So, although he does have an infectious source with abnormal labs and VS he is not septic - No growth in cultures - Zosyn day 2 - Urine output significantly decreased --> bladder scan >500 --> replaced Peters and urine output has been normal since - Developed borderline hypoglycemias for which he was started on D5LR - Iron level 11--> IV iron - Vitamin D level 16--> daily vitamin D - Daily folic acid and thiamine - Plan Plan:: PLAN BY SYSTEMS: Neurology: Continue sedation with Fentanyl, Versed and Propofol Goal RAAS -3 to -4 Sedation vacation today Continue Keppra EEG today Respiratory: Aspiration precautions ETT care by RT Regular suctioning and oral care Zosyn day 3 Cardiovascular: IVF repletion with D5LR Discontinue D5LR and change to LR once tube feeds started Goal MAP >50 GI and Nutrition: OG tube care Start Jevity 1.2 at 10ml/hr today Dietary evaluation for flushed and nutritional and fluid requirements Monitor residuals Kidney and Electrolytes: Replace K (50mEq IV) and Mg (4g IV) Start vitamin D supplementation Strict monitoring of intake, output and overall fluid balance. Maintain neutral as possible. Avoid nephrotoxic medications. Medications to be dosed according to renal function. Monitor electrolytes and replace as needed. Trend creatinine and BUN. Endocrine: Scheduled Accu-checks. Hypoglycemia protocol in place. Infectious Disease: Trend temperature. Panculture if febrile. Follow up on sputum and blood cultured on 04/15 Continue Zosyn Procalcitonin every 48h Hematology and Coagulation: No active bleeding, no coagulopathy to correct, no need to transfuse blood products at the moment. IV iron supplementation today Goal hemoglobin >7g Musculoskeletal and Skin: Bed turn rotation by nursing staff. Daily evaluation for pressure ulcers. PROPHYLAXIS: DVT- Lovenox GI- not indicated CODE STATUS: FULL CODE DISPOSITION: Will remain admitted to ICU while intubated, will attempt sedation vacation today.
[2020-04-17] MEDS: Folic Acid 50 MG/10 ML MDV IV SCH (10:07)
[2020-04-17] MEDS: Nicotine 21 MG/24 Hr Patch TRDERM SCH (10:08)
[2020-04-17] MEDS: Pantoprazole 40 MG Vial IVPUSH SCH (10:09)
[2020-04-17] MEDS: Enoxaparin 40 MG/0.4 ML Syringe SUBCUT SCH (10:09)
[2020-04-17] MEDS ORDERED: Magnesium Sulfate/Water 4 GM in Premix Bag 1 BAG IV ONE (10:30)
[2020-04-17] MEDS: Potassium Chloride 10 MEQ in Premix Bag 1 BAG IV SCH ×5 (10:33→15:02)
[2020-04-17] MEDS ORDERED: Lactated Ringers 1,000 ML IV SCH (17:45)
[2020-04-18] MEDS: LORazepam 2 MG/ML SDV IVPUSH PRN ×13 (01:04→23:27)
[2020-04-18] MEDS: levETIRAcetam 1,000 MG in Sodium Chloride 0.9% 100 ML IV SCH (01:37)
[2020-04-18] MEDS: Piperacillin/Tazobactam 4.5 GM in Sodium Chloride 0.9% 100 ML IV SCH ×2 (03:53→11:53)
[2020-04-18] MEDS: propofoL 100 ML IV SCH (05:25)
[2020-04-18] MEDS: Midazolam 100 MG in Premix Bag 1 BAG IV SCH ×3 (07:14→08:13)
[2020-04-18] MEDS ORDERED: Furosemide 40 MG/4 ML VIAL IVPUSH ONE (07:27)
[2020-04-18] MEDS: Nicotine 21 MG/24 Hr Patch TRDERM SCH (08:08)
[2020-04-18] MEDS: Enoxaparin 40 MG/0.4 ML Syringe SUBCUT SCH (08:08)
--- NOTE | 2020-04-18 08:22 | PCM.PN ---
- General Info Date of Service: 04/18/20 Subjective Update: INTERVAL HISTORY Overnight Events: - Had some involuntary movements that appeared to be tonic clonic as reported by nursing Vital Signs: MAP trend: 68-88 HR trend: 90-120x' Tmax: 98.8 SatO2: >96% Drips and IVF: Fentanyl @ 10mL Versed @ 15mL LR @ 50mls/hr Propofol at 40mL Mechanical Ventilation: Intubation day: 04/14/2020 Mode: AC/VC Vt: 400 FiO2: 28 RR: 18 PEEP: 6 I/Os: UO: 1,220 24h balance: +4,832 Balance since admission: +9,920 NG tube output: 0 BM: 04/13 New results: K 3.4 to 3.8 PO4 2.3 to 1.8 Mg 1.6 to 1.9 Diet: Jevity 1.2 at 45 with 30-80ml residuals and 20mL of free water every 6 hours Infectious Disease: Sputum culture 04/15: growing gram negative rods Blood culture 04/15. no growth to date Zosyn, started 04/15 Procalcitonin 04/16 positive, 0.23 Lines and tubes: Peters catheter 04/14/20 ETT: 04/14/20 Arterial line: 04/16/2020 - Patient Data Vitals - Most Recent: Last Vital Signs Temp 98.8 F 04/18/20 04:00 Pulse 71 04/17/20 06:43 Resp 18 04/18/20 07:00 BP 99/62 04/18/20 07:00 Pulse Ox 100 04/18/20 07:00 Weight - Most Recent: 78.517 kg - Exam General: Sedated HEENT: Mucous Membr. Moist/[place] Neck: Supple, Trachea Midline, No JVD Lungs: Crackles (R base), Rales. No: Rhonchi, Rub, Stridor, Wheezing Cardiovascular: Regular Rhythm, Tachycardia. No: Murmurs, Gallops, Rubs GI/Abdominal Exam: Normal Bowel Sounds, Soft, Distended. No: Guarding, Rigid Extremities: Normal Inspection, Pedal Edema Peripheral Pulses: 2+: Radial (L), Radial (R), Dorsalis Pedis (L), Dorsalis Pedis (R) Skin: Warm Wound/Incisions: Healing Well Sepsis Event Note - Evaluation Sepsis Screening Result: No Definite Risk - Problem List & Annotations (1) Alcohol withdrawal delirium, acute, hyperactive SNOMED Code(s): 4462345, 68843749, 13722065488244381 Code(s): F10.231 - ALCOHOL DEPENDENCE WITH WITHDRAWAL DELIRIUM Status: Acute Current Visit: Yes (2) Alcohol abuse SNOMED Code(s): 85263984 Code(s): F10.10 - ALCOHOL ABUSE, UNCOMPLICATED Status: Acute Current Visit: Yes (3) Delirium tremens SNOMED Code(s): 3233271 Code(s): F10.231 - ALCOHOL DEPENDENCE WITH WITHDRAWAL DELIRIUM Status: Acute Current Visit: Yes (4) Laceration of face SNOMED Code(s): 492774946 Code(s): S01.81XA - LACERATION W/O FOREIGN BODY OF OTH PART OF HEAD, INIT ENCNTR Status: Acute Current Visit: Yes Qualifiers: Encounter type: initial encounter Qualified Code(s): S01.81XA - Laceration without foreign body of other part of head, initial encounter (5) Thrombocytopenia SNOMED Code(s): 205577676 Code(s): D69.6 - THROMBOCYTOPENIA, UNSPECIFIED Status: Acute Current Visit: Yes (6) High anion gap metabolic acidosis SNOMED Code(s): 98734385 Code(s): E87.2 - ACIDOSIS Status: Acute Current Visit: Yes (7) Acute kidney injury SNOMED Code(s): 52098861, 54608341 Code(s): N17.9 - ACUTE KIDNEY FAILURE, UNSPECIFIED Status: Acute Current Visit: Yes (8) Abnormal LFTs SNOMED Code(s): 039330505 Code(s): R94.5 - ABNORMAL RESULTS OF LIVER FUNCTION STUDIES Status: Acute Current Visit: Yes (9) Hypernatremia SNOMED Code(s): 165464007 Code(s): E87.0 - HYPEROSMOLALITY AND HYPERNATREMIA Status: Acute Current Visit: Yes (10) Aspiration pneumonia SNOMED Code(s): 906162632 Code(s): J69.0 - PNEUMONITIS DUE TO INHALATION OF FOOD AND VOMIT Status: Acute Current Visit: Yes (11) Alcohol withdrawal seizure SNOMED Code(s): 057906014 Code(s): F10.239 - ALCOHOL DEPENDENCE WITH WITHDRAWAL, UNSPECIFIED; R56.9 - UNSPECIFIED CONVULSIONS Status: Acute Current Visit: Yes (12) Vitamin D deficiency SNOMED Code(s): 09891983 Code(s): E55.9 - VITAMIN D DEFICIENCY, UNSPECIFIED Status: Acute Current Visit: Yes (13) Iron deficiency SNOMED Code(s): 38354612 Code(s): E61.1 - IRON DEFICIENCY Status: Acute Current Visit: Yes - Problem List Review Problem List Initiated/Reviewed/Updated: Yes - Assessment Assessment:: 04/14/2020 - Brought in by EMS after fall with head trauma - Laceration in ED which was sutured - Ethanol level 0 with significantly elevated CIWAAs which required multiple Ativan doses with minimal response - Admitted to ICU - Banana bag #1 04/15/2020 - Severely agitated with no response to Ativan - Decision was made to intubate to preserve airway while controlling severe withdrawal symptoms - Borderline BP even with CIWAAs > 25 - Sedation with Versed and Fentanyl was insufficient and patient had an episode of arousal during which he pulled at his ETT, pulled it out about 2cm - Propofol was added to sedation regimen - Developed thick and foul smelling secretions--> sputum culture sent - Episode of seizure like movement with associated hypoxemia and elevated CPK-- > loaded on Keppra - Started on Zosyn to cover for aspiration pneumonia - Banan bag #2 - Started on trickle feeds with free water flushes due to water deficit and patient appeared to be regurgitating fluid - Abdomen and CXR performed and OG tube was found to be to high at EG junction--> pushed down 4cm 04/16/2020 - Number gupta met criteria for sepsis however patient's hypotension is not due to infection but due to sedation medications - So, although he does have an infectious source with abnormal labs and VS he is not septic - No growth in cultures - Zosyn day 2 - Urine output significantly decreased --> bladder scan >500 --> replaced Peters and urine output has been normal since - Developed borderline hypoglycemias for which he was started on D5LR - Iron level 11--> IV iron - Vitamin D level 16--> daily vitamin D - Daily folic acid and thiamine 04/17/2020 - EEG: Sedation medication effect - Evidence of cerebral dysfunction, which can be seen with toxic metabolic encephalopathy, anoxic encephalopathy, infection, medication effect - No evidence of electrographic seizures was observed - Sputum culture growing gram negative rods - Blood cultures no growth to date - Zosyn day 3 - Procalcitonin from 04/16 elevated - Had some involuntary movements overnight that appeared to be tonic clonic movements - Plan Plan:: PLAN BY SYSTEMS: Neurology: Continue sedation with Fentanyl, Versed and Propofol Goal RAAS -3 to -4 Sedation vacation today Continue Keppra Folic acid and thiamine Respiratory: Aspiration precautions ETT care by RT Regular suctioning and oral care Zosyn day 3 Cardiovascular: Discontinue D5LR and change to LR once tube feeds started Goal MAP >50 GI and Nutrition: OG tube care Continue Jevity 1.2 at 45ml/hr with 50mL of free water every 6 hours Dietary evaluation for flushed and nutritional and fluid requirements Monitor residuals Kidney and Electrolytes: Significantly positive balance Lasix IV 4 x 1 dose Continue vitamin D supplementation Strict monitoring of intake, output and overall fluid balance. Maintain neutral as possible. Avoid nephrotoxic medications. Medications to be dosed according to renal function. Monitor electrolytes and replace as needed. Trend creatinine and BUN. Endocrine: Vitamin D supplementation Hypoglycemia protocol in place. Infectious Disease: Trend temperature. Panculture if febrile. Follow up on sputum and blood cultured on 04/15 Continue Zosyn Procalcitonin every 48h Hematology and Coagulation: No active bleeding, no coagulopathy to correct, no need to transfuse blood products at the moment. IV iron supplementation today Goal hemoglobin >7g Musculoskeletal and Skin: Bed turn rotation by nursing staff. Daily evaluation for pressure ulcers. PROPHYLAXIS: DVT- Lovenox GI- Protonix CODE STATUS: FULL CODE DISPOSITION: Will remain admitted to ICU while intubated, has been doing fairly well and tolerated sedation vacation yesterday. Spontaneous breathing trial today with possible extubation.
[2020-04-18] MEDS ORDERED: Labetalol 100 MG/20 ML MDV IVPUSH ONE (08:49)
[2020-04-18] MEDS: Folic Acid 50 MG/10 ML MDV IV SCH (09:30)
[2020-04-18] MEDS: Thiamine 200 MG/2 ML MDV IVPUSH SCH (10:43)
[2020-04-18] MEDS ORDERED: Potassium Phosphates 60 MMOLE in Sodium Chloride 0.9% 1,000 ML IV ONE (11:00)
[2020-04-18] MEDS ORDERED: levETIRAcetam 1,000 MG in Sodium Chloride 0.9% 100 ML IV SCH (11:00)
[2020-04-18] MEDS ORDERED: hydrALAZINE 20 MG/ML SDV IVPUSH ONE (17:45)
[2020-04-18] MEDS: cefTRIAXone 2 GM in Sodium Chloride 0.9% 100 ML IV SCH (19:28)
[2020-04-18] MEDS ORDERED: Furosemide 20 MG/2 ML VIAL IVPUSH ONE (19:32)
[2020-04-18] MEDS: Haloperidol Lactate 5 MG/ML SDV IVPUSH PRN (20:03)
[2020-04-19] MEDS: Haloperidol Lactate 5 MG/ML SDV IVPUSH PRN (00:29)
[2020-04-19] MEDS: LORazepam 2 MG/ML SDV IVPUSH PRN ×4 (00:31→14:19)
[2020-04-19] MEDS: Nicotine 21 MG/24 Hr Patch TRDERM SCH (08:46)
[2020-04-19] MEDS: Thiamine 200 MG/2 ML MDV IVPUSH SCH (08:46)
[2020-04-19] MEDS: Enoxaparin 40 MG/0.4 ML Syringe SUBCUT SCH (08:46)
[2020-04-19] MEDS: Folic Acid 50 MG/10 ML MDV IV SCH (09:24)
[2020-04-19] MEDS ORDERED: QUEtiapine 25 MG Tab PO ONE (10:00)
[2020-04-19] MEDS ORDERED: Haloperidol Lactate 5 MG/ML SDV IVPUSH PRN (10:15)
[2020-04-19] MEDS ORDERED: Magnesium Sulfate/Water 4 GM in Premix Bag 1 BAG IV ONE (11:00)
--- NOTE | 2020-04-19 11:05 | PCM.PN ---
- General Info Date of Service: 04/19/20 Subjective Update: INTERVAL HISTORY Overnight Events: - Continues to be agitated but does follow some commands Vital Signs: MAP trend: 70-117 HR trend: 90-150x' Tmax: 98.4 SatO2: >91% I/Os: UO: 11,875 24h balance: -10,647 Balance since admission: -2,766 BM: today New results: Cl 108 to 105 K 3.8 to 3.6 PO4 1.8 to 4.2 Mg 1.9 to 1.6 Glucose 98-142 Diet: NPO Infectious Disease: Sputum culture 04/15: klebsiella pneumoniae resistant to Augmentin and Bactrim Blood culture 04/15. no growth to date Zosyn, started 04/15 stopped 04/18 Started on Rocephin 04/18 Procalcitonin 04/16 positive, 0.23 trending up to 0.36 04/18 Lines and tubes: Peters catheter 04/14/20 ETT: 04/14/20 to 04/18/20 Arterial line: 04/16/20 - Patient Data Vitals - Most Recent: Last Vital Signs Temp 98.1 F 04/19/20 08:00 Pulse 71 04/17/20 06:43 Resp 24 H 04/19/20 08:00 BP 117/75 04/19/20 08:00 Pulse Ox 98 04/19/20 08:00 Weight - Most Recent: 70.942 kg - Exam Quality Assessment: Urine Catheter, DVT Prophylaxis General: Alert, Oriented, Cooperative, No Acute Distress HEENT: EOMI, Mucous Membr. Moist/[place] Neck: Supple, Trachea Midline Lungs: Normal Respiratory Effort, Decreased Breath Sounds, Crackles, Rhonchi. No: Rales, Rub, Stridor, Wheezing Cardiovascular: Regular Rate, Regular Rhythm. No: Murmurs, Gallops, Rubs GI/Abdominal Exam: Normal Bowel Sounds, Soft, Non-Tender, Distended. No: Guarding, Rigid Back Exam: Normal Inspection Extremities: Normal Inspection, No Pedal Edema, Normal Capillary Refill Peripheral Pulses: 2+: Radial (L), Radial (R), Dorsalis Pedis (L), Dorsalis Pedis (R) Skin: Warm, Dry Neurological: No New Focal Deficit Sepsis Event Note - Evaluation Sepsis Screening Result: Sepsis Risk - Problem List & Annotations (1) Alcohol withdrawal delirium, acute, hyperactive SNOMED Code(s): 3831915, 91176117, [id number] Code(s): F10.231 - ALCOHOL DEPENDENCE WITH WITHDRAWAL DELIRIUM Status: Acute Current Visit: Yes (2) Alcohol abuse SNOMED Code(s): 14492503 Code(s): F10.10 - ALCOHOL ABUSE, UNCOMPLICATED Status: Acute Current Visit: Yes (3) Delirium tremens SNOMED Code(s): 0272881 Code(s): F10.231 - ALCOHOL DEPENDENCE WITH WITHDRAWAL DELIRIUM Status: Acute Current Visit: Yes (4) Laceration of face SNOMED Code(s): 948298426 Code(s): S01.81XA - LACERATION W/O FOREIGN BODY OF OTH PART OF HEAD, INIT ENCNTR Status: Acute Current Visit: Yes Qualifiers: Encounter type: initial encounter Qualified Code(s): S01.81XA - Laceration without foreign body of other part of head, initial encounter (5) Thrombocytopenia SNOMED Code(s): 163717518 Code(s): D69.6 - THROMBOCYTOPENIA, UNSPECIFIED Status: Acute Current Visit: Yes (6) High anion gap metabolic acidosis SNOMED Code(s): 16057923 Code(s): E87.2 - ACIDOSIS Status: Acute Current Visit: Yes (7) Acute kidney injury SNOMED Code(s): 27464695, 63210917 Code(s): N17.9 - ACUTE KIDNEY FAILURE, UNSPECIFIED Status: Acute Current Visit: Yes (8) Abnormal LFTs SNOMED Code(s): 249021721 Code(s): R94.5 - ABNORMAL RESULTS OF LIVER FUNCTION STUDIES Status: Acute Current Visit: Yes (9) Hypernatremia SNOMED Code(s): 850569588 Code(s): E87.0 - HYPEROSMOLALITY AND HYPERNATREMIA Status: Acute Current Visit: Yes (10) Aspiration pneumonia SNOMED Code(s): 502640310 Code(s): J69.0 - PNEUMONITIS DUE TO INHALATION OF FOOD AND VOMIT Status: Acute Current Visit: Yes (11) Alcohol withdrawal seizure SNOMED Code(s): 283266926 Code(s): F10.239 - ALCOHOL DEPENDENCE WITH WITHDRAWAL, UNSPECIFIED; R56.9 - UNSPECIFIED CONVULSIONS Status: Acute Current Visit: Yes (12) Vitamin D deficiency SNOMED Code(s): 14253827 Code(s): E55.9 - VITAMIN D DEFICIENCY, UNSPECIFIED Status: Acute Current Visit: Yes (13) Iron deficiency SNOMED Code(s): 42631730 Code(s): E61.1 - IRON DEFICIENCY Status: Acute Current Visit: Yes - Problem List Review Problem List Initiated/Reviewed/Updated: Yes - Assessment Assessment:: 04/14/2020 - Brought in by EMS after fall with head trauma - Laceration in ED which was sutured - Ethanol level 0 with significantly elevated CIWAAs which required multiple Ativan doses with minimal response - Admitted to ICU - Banana bag #1 04/15/2020 - Severely agitated with no response to Ativan - Decision was made to intubate to preserve airway while controlling severe withdrawal symptoms - Borderline BP even with CIWAAs > 25 - Sedation with Versed and Fentanyl was insufficient and patient had an episode of arousal during which he pulled at his ETT, pulled it out about 2cm - Propofol was added to sedation regimen - Developed thick and foul smelling secretions--> sputum culture sent - Episode of seizure like movement with associated hypoxemia and elevated CPK--> loaded on Keppra - Started on Zosyn to cover for aspiration pneumonia - Banan bag #2 - Started on trickle feeds with free water flushes due to water deficit and patient appeared to be regurgitating fluid - Abdomen and CXR performed and OG tube was found to be to high at EG junction--> pushed down 4cm 04/16/2020 - Number gupta met criteria for sepsis however patient's hypotension is not due to infection but due to sedation medications - So, although he does have an infectious source with abnormal labs and VS he is not septic - No growth in cultures - Zosyn day 2 - Urine output significantly decreased --> bladder scan >500 --> replaced Peters and urine output has been normal since - Developed borderline hypoglycemias for which he was started on D5LR - Iron level 11--> IV iron - Vitamin D level 16--> daily vitamin D - Daily folic acid and thiamine - Arterial line placement 04/17/2020 - EEG: Sedation medication effect - Evidence of cerebral dysfunction, which can be seen with toxic metabolic encephalopathy, anoxic encephalopathy, infection, medication effect - No evidence of electrographic seizures was observed - Sputum culture growing gram negative rods - Blood cultures no growth to date - Zosyn day 3 - Procalcitonin from 04/16 elevated 04/18/2020 - Had some involuntary movements overnight that appeared to be tonic clonic movements - Sedation vacation successful and patient tolerated pressure support ventilation without complications - Extubated at 8:36 AM - Throughout the day continued to be confused but was able to be directed by nursing - Failed bedside swallow by nursing - Started on Haldol fo alcohol withdrawal symptoms on top of CIWAA protocol Ativan - Antibiotic day 4 - Sputum culture with pansensitive Klebsiella pneumoniae - Procalcitonin trending upward but these results do not reflect current clinical status - Discussed case with patients parents who agree patient would benefit from inpatient substance abuse rehab - Plan Plan:: PLAN BY SYSTEMS: Neurology: Continue CIWAA protocol PRN Haloperidol for worsening withdrawal symptoms Discontinue Keppra Continue Folic Acid and Thiamine supplementation Psychiatry evaluation today Respiratory: Antibiotic day 5 PRN nebulization treatments and eval by RT Monitor oxygenation Cardiovascular: Discontinue arterial line BP controlled GI and Nutrition: Advance diet to clear liquids Kidney and Electrolytes: Balance negative Continue vitamin D supplementation Strict monitoring of intake, output and overall fluid balance. Maintain neutral as possible. Avoid nephrotoxic medications. Medications to be dosed according to renal function. Monitor electrolytes and replace as needed. Trend creatinine and BUN. Endocrine: Vitamin D supplementation Infectious Disease: Trend temperature. Panculture if febrile. Follow up on blood cultured on 04/15 Discontinue Zosyn Continue Rocephin Procalcitonin every 48h Hematology and Coagulation: No active bleeding, no coagulopathy to correct, no need to transfuse blood products at the moment. Goal hemoglobin >7g Q48h iron supplementation Musculoskeletal and Skin: Ambulate with assistance PROPHYLAXIS: DVT- Lovenox GI- not indicated CODE STATUS: FULL CODE DISPOSITION: Will remain in ICU today with transfer to medical floor tomorrow. Pending psychiatry evaluation today now that he is more alert.
[2020-04-19] MEDS: Potassium Chloride 10 MEQ in Premix Bag 1 BAG IV SCH ×3 (11:40→13:42)
[2020-04-19] MEDS: Ketorolac 15 MG/ML SDV IVPUSH PRN (15:24)
[2020-04-19] MEDS ORDERED: Lactated Ringers 1,000 ML IV ONE (18:51)
[2020-04-19] MEDS: cefTRIAXone 2 GM in Sodium Chloride 0.9% 100 ML IV SCH (19:43)
[2020-04-19] MEDS: QUEtiapine 25 MG Tab PO SCH (20:29)
[2020-04-20] MEDS: LORazepam 2 MG/ML SDV IVPUSH PRN
[2020-04-20] MEDS: Enoxaparin 40 MG/0.4 ML Syringe SUBCUT SCH (10:29)
[2020-04-20] MEDS: Thiamine 100 MG Tab PO SCH (10:29)
[2020-04-20] MEDS: Folic Acid 1 MG Tab PO SCH (10:30)
[2020-04-20] MEDS: Nicotine 21 MG/24 Hr Patch TRDERM SCH (10:30)
--- NOTE | 2020-04-20 10:35 | PCM.PN ---
- General Info Date of Service: 04/20/20 Admission Dx/Problem (Free Text): Admission Diagnosis/Problem Admission Diagnosis/Problem Alcohol abuse with alcohol-induced disorder Subjective Update: Patient is much more alert today and oriented. He states he is hungry and nursing reports that he has much more alert than previous days. Patient did have one bowel movement yesterday. Sleeping well. Functional Status: Reports: Pain Controlled - Review of Systems General: Reports: Fatigue HEENT: Reports: No Symptoms Pulmonary: Reports: No Symptoms Cardiovascular: Reports: No Symptoms Gastrointestinal: Reports: No Symptoms Musculoskeletal: Reports: No Symptoms - Patient Data Vitals - Most Recent: Last Vital Signs Temp 98.2 F 04/20/20 08:00 Pulse 71 04/17/20 06:43 Resp 18 04/20/20 08:00 BP 139/95 H 04/20/20 08:00 Pulse Ox 98 04/20/20 08:00 Weight - Most Recent: 158 lb 11.2 oz I&O - Last 24 Hours: Intake & Output 04/19/20 04/20/20 04/20/20 22:59 06:59 14:59 Intake Total 1880 1100 300 Output Total 2050 570 150 Balance -170 530 150 Lab Results Last 24 Hours: Laboratory Results - last 24 hr 04/19/20 04/20/20 04/20/20 Range/Units 12:54 07:23 07:23 WBC 8.99 (4.23-9.07) K/mm3 RBC 4.07 L (4.63-6.08) M/mm3 Hgb 12.9 L D (13.7-17.5) gm/dl Hct 39.1 L (40.1-51.0) % MCV 96.1 H (79.0-92.2) fl MCH 31.7 (25.7-32.2) pg MCHC 33.0 (32.2-35.5) g/dl RDW Std Deviation 48.9 H (35.1-43.9) fL Plt Count 326 (163-337) K/mm3 MPV 9.7 (9.4-12.3) fl Neut % (Auto) 54.3 (34.0-67.9) % Lymph % (Auto) 26.5 (21.8-53.1) % [place] % (Auto) 15.2 H (5.3-12.2) % Eos % (Auto) 2.3 (0.8-7.0) Baso % (Auto) 0.9 (0.1-1.2) % Neut # (Auto) 4.88 (1.78-5.38) K/mm3 Lymph # (Auto) 2.38 (1.32-3.57) K/mm3 [place] # (Auto) 1.37 H (0.30-0.82) K/mm3 Eos # (Auto) 0.21 (0.04-0.54) K/mm3 Baso # (Auto) 0.08 (0.01-0.08) K/mm3 Manual Slide Review Abnormal smear Sodium 142 (136-145) mEq/L Potassium 3.9 (3.5-5.1) mEq/L Chloride 108 H (98-107) mEq/L Carbon Dioxide 22 (21-32) mEq/L Anion Gap 15.9 H (5-15) BUN 9 (7-18) mg/dL Creatinine 0.9 (0.7-1.3) mg/dL Est Cr Clr Drug Dosing 106.64 mL/min Estimated GFR (MDRD) > 60 (>60) mL/min BUN/Creatinine Ratio 10.0 L (14-18) Glucose 94 (74-106) mg/dL POC Glucose 79 (70-105) mg/dL Calcium 8.5 (8.5-10.1) mg/dL Phosphorus 3.4 (2.6-4.7) mg/dL Magnesium 2.1 (1.8-2.4) mg/dl Jose Results Last 24 Hours: Microbiology 04/15/20 12:58 Aerobic Blood Culture - Preliminary Blood - Venous - Lab Draw NO GROWTH AFTER 4 DAYS Anaerobic Blood Culture - Preliminary NO GROWTH AFTER 4 DAYS 04/15/20 12:47 Aerobic Blood Culture - Preliminary Blood - Venous NO GROWTH AFTER 4 DAYS Anaerobic Blood Culture - Preliminary NO GROWTH AFTER 4 DAYS Med Orders - Current: Current Medications Enoxaparin Sodium (Lovenox) 40 mg SUBCUT DAILY [facility] Last Admin: 04/20/20 10:29 Dose: 40 mg Documented by: Folic Acid (Folic Acid) 1 mg PO DAILY [facility] Last Admin: 04/20/20 10:30 Dose: 1 mg Documented by: Haloperidol Lactate (Haldol) 2 mg IVPUSH Q4H PRN PRN Reason: withdrawl symptoms Midazolam HCl 100 mg/ Premix 100 mls @ 1.35 mls/hr IV TITRATE [facility]; Protocol Last Titration: 04/18/20 08:17 Dose: 0 mg/kg/hr, 0 mls/hr Documented by: Fentanyl 2,500 mcg/ Sodium (Chloride) 250 mls @ 6.75 mls/hr IV TITRATE [facility]; Protocol Last Titration: 04/18/20 07:05 Dose: 0 mcg/kg/hr, 0 mls/hr Documented by: Propofol (Diprivan 100 Ml) 100 mls @ 2.028 mls/hr IV TITRATE [facility]; Protocol Last Titration: 04/18/20 07:47 Dose: 0 mcg/kg/min, 0 mls/hr Documented by: Ceftriaxone Sodium 2 gm/ (Sodium Chloride) 100 mls @ 200 mls/hr IV Q24H [facility] Last Admin: 04/19/20 19:43 Dose: 200 mls/hr Documented by: Ketorolac Tromethamine (Toradol) 15 mg IVPUSH Q6H PRN PRN Reason: Pain Last Admin: 04/19/20 15:24 Dose: 15 mg Documented by: Lorazepam (Ativan) 0 mg IVPUSH Q1H PRN; Protocol PRN Reason: Detox Last Admin: 04/20/20 00:00 Dose: 2 mg Documented by: Miscellaneous Information (Remove Patch) 1 ea TRDERM Q24H [facility] Last Admin: 04/20/20 10:29 Dose: 1 ea Documented by: Nicotine (Habitrol) 21 mg TRDERM DAILY [facility] Last Admin: 04/20/20 10:30 Dose: 21 mg Documented by: Ondansetron HCl (Zofran) 4 mg IV Q6H PRN PRN Reason: Nausea/Vomiting Quetiapine Fumarate (Seroquel) 50 mg PO BEDTIME [facility] Last Admin: 04/19/20 20:29 Dose: 50 mg Documented by: Sodium Chloride (Saline Flush) 10 ml FLUSH ASDIRECTED PRN PRN Reason: Keep Vein Open Last Admin: 04/13/20 21:37 Dose: 10 ml Documented by: Thiamine HCl (Vitamin B-1) 100 mg PO DAILY [facility] Last Admin: 04/20/20 10:29 Dose: 100 mg Documented by: Discontinued Medications Diphenhydramine HCl (Benadryl) 50 mg IVPUSH ONETIME ONE Stop: 04/13/20 20:03 Last Admin: 04/13/20 20:02 Dose: 50 mg Documented by: Diphenhydramine HCl (Benadryl) Confirm Administered Dose 50 mg .ROUTE .STK-MED ONE Stop: 04/13/20 20:03 Last Admin: 04/13/20 21:37 Dose: Not Given Documented by: Diphenhydramine HCl (Benadryl) 50 mg IVPUSH ONETIME ONE Stop: 04/14/20 03:30 Last Admin: 04/14/20 03:30 Dose: 50 mg Documented by: Diphtheria/Tetanus/Acell Pertussis (Adacel) 0.5 ml IM .ONCE ONE Stop: 04/13/20 18:45 Last Admin: 04/13/20 23:00 Dose: 0.5 ml Documented by: Etomidate (Amidate) 20 mg IVPUSH ONETIME ONE Stop: 04/14/20 09:20 Last Admin: 04/14/20 09:19 Dose: 20 mg Documented by: Etomidate (Amidate) 20 mg IVPUSH ONETIME ONE Stop: 04/14/20 09:28 Last Admin: 04/14/20 09:27 Dose: 20 mg Documented by: Etomidate (Amidate) 40 mg IVPUSH ONETIME ONE Stop: 04/14/20 14:06 Last Admin: 04/14/20 14:05 Dose: 40 mg Documented by: Fentanyl (Sublimaze) 100 mcg IVPUSH ONETIME ONE Stop: 04/14/20 09:39 Last Admin: 04/14/20 13:10 Dose: Not Given Documented by: Folic Acid (Folic Acid) 1 mg IV DAILY [facility] Last Admin: 04/19/20 09:24 Dose: 1 mg Documented by: Furosemide (Lasix) 20 mg IVPUSH ONETIME STA Stop: 04/15/20 09:53 Last Admin: 04/15/20 09:56 Dose: 20 mg Documented by: Furosemide (Lasix) 40 mg IVPUSH NOW ONE Stop: 04/18/20 07:28 Last Admin: 04/18/20 08:08 Dose: 40 mg Documented by: Furosemide (Lasix) 20 mg IVPUSH ONETIME ONE Stop: 04/18/20 19:33 Last Admin: 04/18/20 19:50 Dose: 20 mg Documented by: Haloperidol Lactate (Haldol) 2 mg IVPUSH Q4HR PRN PRN Reason: withdrawl symptoms Last Admin: 04/19/20 00:29 Dose: 2 mg Documented by: Hydralazine HCl (Apresoline) 10 mg IVPUSH ONETIME ONE Stop: 04/18/20 17:46 Last Admin: 04/18/20 18:28 Dose: 10 mg Documented by: Lactated Ringer's (Ringers, Lactated) 1,000 mls @ 125 mls/hr IV ASDIRECTED [facility] Lactated Ringer's (Ringers, Lactated) 1,000 mls @ 1,000 mls/hr IV .BOLUS ONE Stop: 04/13/20 19:45 Last Admin: 04/13/20 19:25 Dose: 1,000 mls/hr Documented by: Thiamine HCl 1,000 mg/Magnesium Sulfate 1 gm/ Folic Acid 1 mg/ Dextrose/Sodium Chloride 1,012.2 mls @ 126.525 mls/hr IV ONETIME ONE Stop: 04/14/20 17:29 Last Admin: 04/14/20 10:36 Dose: 126.525 mls/hr Documented by: Lactated Ringer's (Ringers, Lactated) 1,000 mls @ 125 mls/hr IV ASDIRECTED [facility] Last Admin: 04/15/20 11:07 Dose: 125 mls/hr Documented by: Thiamine HCl 1,000 mg/ Folic Acid 1 mg/ Dextrose/Sodium Chloride 1,010.2 mls @ 126.275 mls/hr IV ONETIME ONE Stop: 04/15/20 17:59 Last Admin: 04/15/20 10:29 Dose: 126.275 mls/hr Documented by: Piperacillin Sod/Tazobactam (Sod 4.5 gm/ Sodium Chloride) 100 mls @ 200 mls/hr IV ONETIME ONE Stop: 04/15/20 12:41 Last Admin: 04/15/20 13:04 Dose: 200 mls/hr Documented by: Piperacillin Sod/Tazobactam (Sod 4.5 gm/ Sodium Chloride) 100 mls @ 25 mls/hr IV Q8H [facility] Stop: 04/18/20 17:00 Last Admin: 04/18/20 11:53 Dose: 25 mls/hr Documented by: Levetiracetam 250 mg/ Sodium (Chloride) 102.5 mls @ 400 mls/hr IV ONETIME ONE Stop: 04/15/20 14:08 Last Admin: 04/15/20 14:59 Dose: 400 mls/hr Documented by: Levetiracetam 1,000 mg/ Sodium (Chloride) 110 mls @ 400 mls/hr IV Q12H [facility] Last Admin: 04/18/20 01:37 Dose: 400 mls/hr Documented by: Lactated Ringer's (Ringers, Lactated) 1,000 mls @ 250 mls/hr IV ASDIRECTED [facility] Lactated Ringer's (Ringers, Lactated) 1,000 mls @ 100 mls/hr IV ASDIRECTED [facility] Last Admin: 04/16/20 13:35 Dose: 100 mls/hr Documented by: Sodium Chloride (Normal Saline) Confirm Administered Dose 1,000 mls @ as directed .ROUTE .[facility] ONE Stop: 04/16/20 08:28 Last Admin: 04/16/20 11:42 Dose: Not Given Documented by: Sodium Chloride (Normal Saline) Confirm Administered Dose 500 mls @ as directed .ROUTE .[facility] ONE Stop: 04/16/20 08:30 Last Admin: 04/16/20 11:57 Dose: Not Given Documented by: Midazolam HCl 83 mg/ Premix 83 mls @ 15 mls/hr IV TITRATE [facility]; Protocol Stop: 04/16/20 22:31 Last Admin: 04/16/20 19:00 Dose: 15 mg/hr, 15 mls/hr Documented by: Sodium Chloride (Normal Saline) 500 mls @ 10 mls/hr IV ASDIRECTED ONE Stop: 04/18/20 13:52 Last Admin: 04/16/20 10:45 Dose: 10 mls/hr Documented by: Dextrose/Lactated Ringer's (Dextrose 5%-Lactated Ringers) 1,000 mls @ 150 mls/hr IV ASDIRECTED [facility] Last Infusion: 04/17/20 12:18 Dose: 50 mls/hr Documented by: Thiamine HCl 100 mg/ Sodium (Chloride) 101 mls @ 202 mls/hr IV ONETIME ONE Stop: 04/16/20 16:46 Last Admin: 04/16/20 18:24 Dose: 202 mls/hr Documented by: Phenytoin Sodium 250 mg/ (Sodium Chloride) 105 mls @ 420 mls/hr IV Q12H [facility] Lactated Ringer's (Ringers, Lactated) 1,000 mls @ 999 mls/hr IV .BOLUS ONE Stop: 04/16/20 18:58 Last Admin: 04/16/20 17:57 Dose: 999 mls/hr Documented by: Lactated Ringer's (Ringers, Lactated) 1,000 mls @ 150 mls/hr IV ONETIME ONE Stop: 04/17/20 00:37 Last Admin: 04/16/20 18:05 Dose: 150 mls/hr Documented by: Lactated Ringer's (Ringers, Lactated) Confirm Administered Dose 1,000 mls @ as directed .ROUTE .STK-MED ONE Stop: 04/16/20 17:57 Last Admin: 04/16/20 19:41 Dose: Not Given Documented by: Midazolam HCl 83 mg/ Premix 83 mls @ 15 mls/hr IV TITRATE [facility]; Protocol Stop: 04/17/20 05:26 Potassium Chloride 10 meq/ (Premix) 100 mls @ 100 mls/hr IV Q1H [facility] Stop: 04/17/20 15:29 Last Admin: 04/17/20 15:02 Dose: 100 mls/hr Documented by: Magnesium Sulfate 4 gm/ Premix 50 mls @ 12.5 mls/hr IV ONETIME ONE Stop: 04/17/20 14:29 Last Admin: 04/17/20 10:37 Dose: 12.5 mls/hr Documented by: Lactated Ringer's (Ringers, Lactated) 1,000 mls @ 50 mls/hr IV ASDIRECTED [facility] Last Admin: 04/17/20 18:55 Dose: 50 mls/hr Documented by: Levetiracetam 1,000 mg/ Sodium (Chloride) 110 mls @ 400 mls/hr IV Q12H [facility] Last Admin: 04/18/20 10:38 Dose: 400 mls/hr Documented by: Potassium Phosphate 60 mmole/ (Sodium Chloride) 1,020 mls @ 102 mls/hr IV ONETIME ONE Stop: 04/18/20 20:59 Last Admin: 04/18/20 10:58 Dose: 102 mls/hr Documented by: Magnesium Sulfate 4 gm/ Premix 50 mls @ 12.5 mls/hr IV ONETIME ONE Stop: 04/19/20 14:59 Last Admin: 04/19/20 11:40 Dose: 12.5 mls/hr Documented by: Potassium Chloride 10 meq/ (Premix) 100 mls @ 100 mls/hr IV Q1H [facility] Stop: 04/19/20 13:59 Last Admin: 04/19/20 13:42 Dose: 100 mls/hr Documented by: Lactated Ringer's (Ringers, Lactated) 1,000 mls @ 999 mls/hr IV BOLUS ONE Stop: 04/19/20 19:51 Last Admin: 04/19/20 18:58 Dose: 999 mls/hr Documented by: Ketamine HCl (Ketalar) 500 mg IV ONETIME ONE Stop: 04/14/20 09:39 Last Admin: 04/14/20 09:45 Dose: 500 mg Documented by: Ketamine HCl (Ketalar) 500 mg IM ONETIME ONE Stop: 04/14/20 14:06 Last Admin: 04/14/20 14:45 Dose: Not Given Documented by: Ketamine HCl (Ketalar) 500 mg IV ONETIME ONE Stop: 04/14/20 14:06 Last Admin: 04/14/20 14:05 Dose: 500 mg Documented by: Labetalol HCl (Normodyne) 10 mg IVPUSH ONETIME ONE; Protocol Stop: 04/18/20 08:50 Last Admin: 04/18/20 08:56 Dose: 10 mg Documented by: Lidocaine HCl (Xylocaine 1%) Confirm Administered Dose 10 ml .ROUTE .STK-MED ONE Stop: 04/14/20 00:42 Last Admin: 04/14/20 04:05 Dose: 10 ml Documented by: Lorazepam (Ativan) 2 mg IVPUSH ONETIME ONE Stop: 04/13/20 19:30 Last Admin: 04/13/20 19:34 Dose: 2 mg Documented by: Lorazepam (Ativan) Confirm Administered Dose 2 mg .ROUTE .STK-MED ONE Stop: 04/13/20 19:29 Last Admin: 04/13/20 19:34 Dose: Not Given Documented by: Lorazepam (Ativan) 2 mg IVPUSH ONETIME ONE Stop: 04/13/20 19:50 Last Admin: 04/13/20 19:52 Dose: 2 mg Documented by: Lorazepam (Ativan) 2 mg IVPUSH ONETIME ONE Stop: 04/13/20 21:36 Last Admin: 04/13/20 19:47 Dose: 2 mg Documented by: Lorazepam (Ativan) 2 mg IVPUSH ONETIME ONE Stop: 04/14/20 02:06 Last Admin: 04/14/20 03:03 Dose: 2 mg Documented by: Lorazepam (Ativan) Confirm Administered Dose 2 mg .ROUTE .STK-MED ONE Stop: 04/14/20 02:07 Last Admin: 04/14/20 04:04 Dose: Not Given Documented by: Lorazepam (Ativan) Confirm Administered Dose 4 mg .ROUTE .STK-MED ONE Stop: 04/14/20 03:52 Last Admin: 04/14/20 04:04 Dose: Not Given Documented by: Lorazepam (Ativan) 2 mg IVPUSH ONETIME ONE Stop: 04/14/20 04:06 Last Admin: 04/14/20 03:30 Dose: 2 mg Documented by: Lorazepam (Ativan) 2 mg IVPUSH ONETIME ONE Stop: 04/14/20 14:01 Last Admin: 04/14/20 14:00 Dose: 2 mg Documented by: Midazolam HCl (Versed 1 Mg/Ml) Confirm Administered Dose 2 mg .ROUTE .STK-MED ONE Stop: 04/14/20 03:43 Last Admin: 04/14/20 04:05 Dose: Not Given Documented by: Midazolam HCl (Versed 1 Mg/Ml) Confirm Administered Dose 4 mg .ROUTE .STK-MED ONE Stop: 04/14/20 03:46 Last Admin: 04/14/20 04:05 Dose: Not Given Documented by: Midazolam HCl (Versed 1 Mg/Ml) 4 mg IVPUSH ONETIME ONE Stop: 04/14/20 04:02 Last Admin: 04/14/20 03:40 Dose: 4 mg Documented by: Midazolam HCl (Versed 1 Mg/Ml) 2.5 mg IVPUSH ONETIME ONE Stop: 04/14/20 09:15 Last Admin: 04/14/20 09:14 Dose: 2.5 mg Documented by: Midazolam HCl (Versed 1 Mg/Ml) 7.5 mg IVPUSH ONETIME ONE Stop: 04/14/20 09:39 Last Admin: 04/14/20 09:38 Dose: 7.5 mg Documented by: Midazolam HCl (Versed 1 Mg/Ml) 5 mg IVPUSH ONETIME ONE Stop: 04/14/20 14:01 Last Admin: 04/14/20 14:00 Dose: 5 mg Documented by: Olanzapine (Zyprexa) 5 mg IM ONETIME ONE Stop: 04/13/20 19:52 Last Admin: 04/13/20 19:51 Dose: 5 mg Documented by: Olanzapine (Zyprexa) Confirm Administered Dose 10 mg .ROUTE .STK-MED ONE Stop: 04/13/20 19:52 Last Admin: 04/13/20 21:37 Dose: Not Given Documented by: Olanzapine (Zyprexa) 5 mg IM ONETIME ONE Stop: 04/14/20 02:06 Last Admin: 04/14/20 03:03 Dose: 5 mg Documented by: Pantoprazole Sodium (Protonix Iv) 40 mg IVPUSH Q24H [facility] Last Admin: 04/17/20 10:09 Dose: 40 mg Documented by: Phenytoin Sodium (Phenytoin) 500 mg IVPUSH Q8H [facility] Stop: 04/17/20 09:01 Last Admin: 04/16/20 17:15 Dose: 500 mg Documented by: Propofol (Diprivan 20 Ml) 200 mg IVPUSH ONETIME ONE Stop: 04/14/20 14:09 Last Admin: 04/14/20 14:08 Dose: 200 mg Documented by: Quetiapine Fumarate (Seroquel) 25 mg PO ONETIME ONE Stop: 04/19/20 10:01 Last Admin: 04/19/20 09:28 Dose: 25 mg Documented by: Succinylcholine Chloride (Quelicin) 200 mg IV ONETIME ONE Stop: 04/14/20 09:21 Last Admin: 04/14/20 09:20 Dose: 200 mg Documented by: Thiamine HCl (Vitamin B-1) 100 mg IVPUSH DAILY [facility] Last Admin: 04/19/20 08:46 Dose: 100 mg Documented by: - Exam General: Alert, Oriented HEENT: Pupils Equal, Mucous Membr. Moist/[place] Neck: Supple Lungs: Clear to Auscultation, Normal Respiratory Effort Cardiovascular: Regular Rate, Regular Rhythm GI/Abdominal Exam: Normal Bowel Sounds, Soft, Non-Tender, No Organomegaly, No Distention, No Abnormal Bruit, No Mass Extremities: Normal Inspection, Normal Range of Motion, Non-Tender, No Pedal Edema, Normal Capillary Refill Skin: Warm, Dry, Intact Psy/Mental Status: Alert, Normal Affect, Normal Mood Sepsis Event Note - Evaluation Sepsis Screening Result: Sepsis Risk - Focused Exam Vital Signs: Vital Signs Temp Resp BP BP Pulse Ox 04/20/20 08:00 98.2 F 18 139/95 H 98 04/20/20 04:00 98.8 F 26 H 109/70 97 04/20/20 00:00 98.1 F 22 H 147/87 H 147/87 H 97 Date Exam was Performed: 04/20/20 Time Exam was Performed: 10:49 - Problem List Review Problem List Initiated/Reviewed/Updated: Yes - My Orders Last 24 Hours: My Active Orders 04/20/20 Breakfast Regular Diet [DIET] - Assessment Assessment:: 04/14/2020 - Brought in by EMS after fall with head trauma - Laceration in ED which was sutured - Ethanol level 0 with significantly elevated CIWAAs which required multiple Ativan doses with minimal response - Admitted to ICU - Banana bag #1 04/15/2020 - Severely agitated with no response to Ativan - Decision was made to intubate to preserve airway while controlling severe withdrawal symptoms - Borderline BP even with CIWAAs > 25 - Sedation with Versed and Fentanyl was insufficient and patient had an episode of arousal during which he pulled at his ETT, pulled it out about 2cm - Propofol was added to sedation regimen - Developed thick and foul smelling secretions--> sputum culture sent - Episode of seizure like movement with associated hypoxemia and elevated CPK--> loaded on Keppra - Started on Zosyn to cover for aspiration pneumonia - Banan bag #2 - Started on trickle feeds with free water flushes due to water deficit and patient appeared to be regurgitating fluid - Abdomen and CXR performed and OG tube was found to be to high at EG junction--> pushed down 4cm 04/16/2020 - Number gupta met criteria for sepsis however patient's hypotension is not due to infection but due to sedation medications - So, although he does have an infectious source with abnormal labs and VS he is not septic - No growth in cultures - Zosyn day 2 - Urine output significantly decreased --> bladder scan >500 --> replaced Peters and urine output has been normal since - Developed borderline hypoglycemias for which he was started on D5LR - Iron level 11--> IV iron - Vitamin D level 16--> daily vitamin D - Daily folic acid and thiamine - Arterial line placement 04/17/2020 - EEG: Sedation medication effect - Evidence of cerebral dysfunction, which can be seen with toxic metabolic encephalopathy, anoxic encephalopathy, infection, medication effect - No evidence of electrographic seizures was observed - Sputum culture growing gram negative rods - Blood cultures no growth to date - Zosyn day 3 - Procalcitonin from 04/16 elevated 04/18/2020 - Had some involuntary movements overnight that appeared to be tonic clonic movements - Sedation vacation successful and patient tolerated pressure support ventilation without complications - Extubated at 8:36 AM - Throughout the day continued to be confused but was able to be directed by nursing - Failed bedside swallow by nursing - Started on Haldol fo alcohol withdrawal symptoms on top of CIWAA protocol Ativan - Antibiotic day 4 - Sputum culture with pansensitive Klebsiella pneumoniae - Procalcitonin trending upward but these results do not reflect current clinical status - Discussed case with patients parents who agree patient would benefit from inpatient substance abuse rehab April 20, 2020 * Patient much more alert and oriented. * Ate his full breakfast. * Given 2 mg of Ativan overnight. * Day 6 of antibiotics. * Procalcitonin today. - Plan Plan:: PLAN BY SYSTEMS: Neurology: Continue CIWAA protocol PRN Haloperidol for worsening withdrawal symptoms Discontinue Keppra Continue Folic Acid and Thiamine supplementation Psychiatry evaluation today Respiratory: Antibiotic day 6 PRN nebulization treatments and eval by RT Monitor oxygenation Cardiovascular: Discontinue arterial line BP controlled GI and Nutrition: Advance diet to full diet Kidney and Electrolytes: Balance negative Continue vitamin D supplementation Strict monitoring of intake, output and overall fluid balance. Maintain neutral as possible. Avoid nephrotoxic medications. Medications to be dosed according to renal function. Monitor electrolytes and replace as needed. Trend creatinine and BUN. Endocrine: Vitamin D supplementation Infectious Disease: Trend temperature. Panculture if febrile. Follow up on blood cultured on 04/15 Discontinue Zosyn Continue Rocephin Procalcitonin every 48h Hematology and Coagulation: No active bleeding, no coagulopathy to correct, no need to transfuse blood products at the moment. Goal hemoglobin >7g Q48h iron supplementation Musculoskeletal and Skin: Ambulate with assistance PROPHYLAXIS: DVT- Lovenox GI- not indicated CODE STATUS: FULL CODE DISPOSITION: Transfer to medical floor. Pending psychiatry evaluation today now that he is more alert. Disposition pending per [place] and psychiatry evaluation.
[2020-04-20] MEDS: Ketorolac 15 MG/ML SDV IVPUSH PRN (13:42)
[2020-04-20] MEDS ORDERED: Benzocaine/Cetylpyridinium/Menthol Lozenge MUCMEM PRN (19:50)
[2020-04-20] MEDS ORDERED: guaiFENesin/Dextromethorphan 100-10 MG/5 ML Soln 5 ML Cup PO PRN (19:51)
[2020-04-20] MEDS: cefTRIAXone 2 GM in Sodium Chloride 0.9% 100 ML IV SCH (20:41)
[2020-04-20] MEDS: QUEtiapine 25 MG Tab PO SCH (20:41)
[2020-04-21] MEDS: Thiamine 100 MG Tab PO SCH (08:20)
[2020-04-21] MEDS: Folic Acid 1 MG Tab PO SCH (08:20)
[2020-04-21] MEDS: Nicotine 21 MG/24 Hr Patch TRDERM SCH (08:21)
[2020-04-21] MEDS: Enoxaparin 40 MG/0.4 ML Syringe SUBCUT SCH (08:23)
--- NOTE | 2020-04-21 10:54 | PCM.DCSUM1 ---
Discharge Summary - Hospital Course HPI Initial Comments: The patient presents by [facility] for a head injury. He walked into a local hotel and collapsed hitting his head. He has a laceration to the right eyebrow. He was out for about 5 minutes. When he woke up he was agitated and shaking. Dad states patient has been drinking at least 300 beers in the past 3 weeks, he did notice his hands shaking a couple of days ago and asked him what was happening patient stated all was ok. He did not see any more shaking the day after. Diagnosis: Stroke: No - Discharge Data Discharge Date: 04/21/20 Discharge Disposition: DC/Tfer to Other 70 Condition: Good - Referral to Home Health Primary Care Physician: PCP None - Discharge Diagnosis/Problem(s) (1) Abnormal LFTs SNOMED Code(s): 554392730 ICD Code: R94.5 - ABNORMAL RESULTS OF LIVER FUNCTION STUDIES Status: Acute Current Visit: Yes (2) Acute kidney injury SNOMED Code(s): 98029667, 53857893 ICD Code: N17.9 - ACUTE KIDNEY FAILURE, UNSPECIFIED Status: Acute Current Visit: Yes (3) Alcohol withdrawal delirium, acute, hyperactive SNOMED Code(s): 1797523, 07885752, [id number] ICD Code: F10.231 - ALCOHOL DEPENDENCE WITH WITHDRAWAL DELIRIUM Status: Acute Current Visit: Yes (4) Alcohol withdrawal seizure SNOMED Code(s): 493527340 ICD Code: F10.239 - ALCOHOL DEPENDENCE WITH WITHDRAWAL, UNSPECIFIED; R56.9 - UNSPECIFIED CONVULSIONS Status: Acute Current Visit: Yes (5) Aspiration pneumonia SNOMED Code(s): 206122530 ICD Code: J69.0 - PNEUMONITIS DUE TO INHALATION OF FOOD AND VOMIT Status: Acute Current Visit: Yes (6) Delirium tremens SNOMED Code(s): 5081560 ICD Code: F10.231 - ALCOHOL DEPENDENCE WITH WITHDRAWAL DELIRIUM Status: Acute Current Visit: Yes - Patient Summary/Data Consults: Consultations 04/14/20 08:32 Consult to Case Management/Egg Caser [CONS] Routine Consult to Physician [CONS] Routine 04/20/20 12:46 PT Evaluation and Treatment [CONS] Routine 04/20/20 12:47 OT Evaluation and Treatment [CONS] Routine Hospital Course: 04/14/2020 - Brought in by EMS after fall with head trauma - Laceration in ED which was sutured - Ethanol level 0 with significantly elevated CIWAAs which required multiple Ativan doses with minimal response - Admitted to ICU - Banana bag #1 04/15/2020 - Severely agitated with no response to Ativan - Decision was made to intubate to preserve airway while controlling severe withdrawal symptoms - Borderline BP even with CIWAAs > 25 - Sedation with Versed and Fentanyl was insufficient and patient had an episode of arousal during which he pulled at his ETT, pulled it out about 2cm - Propofol was added to sedation regimen - Developed thick and foul smelling secretions--> sputum culture sent - Episode of seizure like movement with associated hypoxemia and elevated CPK--> loaded on Keppra - Started on Zosyn to cover for aspiration pneumonia - Banan bag #2 - Started on trickle feeds with free water flushes due to water deficit and patient appeared to be regurgitating fluid - Abdomen and CXR performed and OG tube was found to be to high at EG hiren ction--> pushed down 4cm 04/16/2020 - Number gupta met criteria for sepsis however patient's hypotension is not due to infection but due to sedation medications - So, although he does have an infectious source with abnormal labs and VS he is not septic - No growth in cultures - Zosyn day 2 - Urine output significantly decreased --> bladder scan >500 --> replaced Peters and urine output has been normal since - Developed borderline hypoglycemias for which he was started on D5LR - Iron level 11--> IV iron - Vitamin D level 16--> daily vitamin D - Daily folic acid and thiamine - Arterial line placement 04/17/2020 - EEG: Sedation medication effect - Evidence of cerebral dysfunction, which can be seen with toxic metabolic encephalopathy, anoxic encephalopathy, infection, medication effect - No evidence of electrographic seizures was observed - Sputum culture growing gram negative rods - Blood cultures no growth to date - Zosyn day 3 - Procalcitonin from 04/16 elevated 04/18/2020 - Had some involuntary movements overnight that appeared to be tonic clonic movements - Sedation vacation successful and patient tolerated pressure support ventilation without complications - Extubated at 8:36 AM - Throughout the day continued to be confused but was able to be directed by nursing - Failed bedside swallow by nursing - Started on Haldol fo alcohol withdrawal symptoms on top of CIWAA protocol Ativan - Antibiotic day 4 - Sputum culture with pansensitive Klebsiella pneumoniae - Procalcitonin trending upward but these results do not reflect current clinical status - Discussed case with patients parents who agree patient would benefit from inpatient substance abuse rehab April 20, 2020 * Patient much more alert and oriented. * Ate his full breakfast. * Given 2 mg of Ativan overnight. * Day 6 of antibiotics. * Procalcitonin today. - Patient Instructions Diet: Regular Diet as Tolerated, No Alcoholic Beverages Activity: As Tolerated Driving: Do Not Drive Showering/Bathing: May Shower Notify Provider of: Nausea and/or Vomiting - Discharge Plan *PRESCRIPTION DRUG MONITORING PROGRAM REVIEWED*: No *COPY OF PRESCRIPTION DRUG MONITORING REPORT IN PATIENT SAMANTHA: No Prescriptions/Med Rec: Folic Acid 1 mg PO DAILY #30 tablet Nicotine [Habitrol] 21 mg TRDERM DAILY #30 patch QUEtiapine [SEROquel] 50 mg PO BEDTIME #30 tablet Thiamine [Vitamin B-1] 100 mg PO DAILY #30 tablet Home Medications: Home Meds Folic Acid 1 mg PO DAILY #30 tablet 04/21/20 [Rx] Nicotine [Habitrol] 21 mg TRDERM DAILY #30 patch 04/21/20 [Rx] QUEtiapine [SEROquel] 50 mg PO BEDTIME #30 tablet 04/21/20 [Rx] Thiamine [Vitamin B-1] 100 mg PO DAILY #30 tablet 04/21/20 [Rx] Oxygen Therapy Mode: Room Air Patient Handouts: Alcohol Use Disorder, Steps to Quit Smoking Forms: ED Department Discharge Referrals: smoking, cessation [Other] - 05/02/20 10:00 am PCP,None [Primary Care Provider] - - Discharge Summary/Plan Comment DC Time >30 min.: Yes Discharge Summary/Plan Comment: Discharge to [facility] for decision on treatment for alcoholism. - General Info Date of Service: 04/21/20 Admission Dx/Problem (Free Text: Admission Diagnosis/Problem Admission Diagnosis/Problem Alcohol abuse with alcohol-induced disorder Subjective Update: Patient is doing well today. Appetite is excellent. Up in room on his own. Functional Status: Reports: Pain Controlled - Review of Systems General: Reports: No Symptoms HEENT: Reports: No Symptoms Pulmonary: Reports: No Symptoms Cardiovascular: Reports: No Symptoms Gastrointestinal: Reports: No Symptoms Musculoskeletal: Reports: No Symptoms Skin: Reports: No Symptoms Neurological: Reports: No Symptoms Psychiatric: Reports: No Symptoms - Patient Data Vitals - Most Recent: Last Vital Signs Temp 97.8 F 04/21/20 08:30 Pulse 80 04/21/20 08:30 Resp 16 04/21/20 08:30 BP 130/72 04/21/20 08:30 Pulse Ox 98 04/21/20 08:30 Weight - Most Recent: 71.441 kg I&O - Last 24 hours: Intake & Output 04/20/20 04/21/20 04/21/20 22:59 06:59 14:59 Intake Total 780 600 120 Output Total 400 Balance 780 200 120 Lab Results - Last 24 hrs: Laboratory Results - last 24 hr 04/16/20 04/19/20 04/20/20 Range/Units 05:34 17:27 07:23 POC Glucose 125 H (70-105) mg/dL Procalcitonin 0.16 H (<0.10) ng/mL Levetiracetam 18.0 (10.0-40.0) ug/mL REINALDO Results - Last 24 hrs: Microbiology 04/15/20 12:58 Aerobic Blood Culture - Preliminary Blood - Venous - Lab Draw NO GROWTH AFTER 5 DAYS Anaerobic Blood Culture - Preliminary NO GROWTH AFTER 5 DAYS 04/15/20 12:47 Aerobic Blood Culture - Preliminary Blood - Venous NO GROWTH AFTER 5 DAYS Anaerobic Blood Culture - Preliminary NO GROWTH AFTER 5 DAYS Med Orders - Current: Current Medications Benzocaine/Menthol (Cepacol Sore Throat) 1 lozenge MUCMEM Q2HR PRN PRN Reason: Other Last Admin: 04/20/20 21:36 Dose: 1 lozenge Documented by: Enoxaparin Sodium (Lovenox) 40 mg SUBCUT DAILY [facility] Last Admin: 04/21/20 08:23 Dose: 40 mg Documented by: Folic Acid (Folic Acid) 1 mg PO DAILY [facility] Last Admin: 04/21/20 08:20 Dose: 1 mg Documented by: Guaifenesin/Phenylephrine HCl (Robitussin Dm) 10 ml PO QID PRN PRN Reason: Cough Last Admin: 04/20/20 21:36 Dose: 10 ml Documented by: Haloperidol Lactate (Haldol) 2 mg IVPUSH Q4H PRN PRN Reason: withdrawl symptoms Ketorolac Tromethamine (Toradol) 15 mg IVPUSH Q6H PRN PRN Reason: Pain Last Admin: 04/20/20 13:42 Dose: 15 mg Documented by: Lorazepam (Ativan) 0 mg IVPUSH Q1H PRN; Protocol PRN Reason: Detox Last Admin: 04/20/20 00:00 Dose: 2 mg Documented by: Miscellaneous Information (Remove Patch) 1 ea TRDERM Q24H [facility] Last Admin: 04/21/20 08:21 Dose: 1 ea Documented by: Nicotine (Habitrol) 21 mg TRDERM DAILY [facility] Last Admin: 04/21/20 08:21 Dose: 21 mg Documented by: Ondansetron HCl (Zofran) 4 mg IV Q6H PRN PRN Reason: Nausea/Vomiting Quetiapine Fumarate (Seroquel) 50 mg PO BEDTIME [facility] Last Admin: 04/20/20 20:41 Dose: 50 mg Documented by: Sodium Chloride (Saline Flush) 10 ml FLUSH ASDIRECTED PRN PRN Reason: Keep Vein Open Last Admin: 04/13/20 21:37 Dose: 10 ml Documented by: Thiamine HCl (Vitamin B-1) 100 mg PO DAILY [facility] Last Admin: 04/21/20 08:20 Dose: 100 mg Documented by: Discontinued Medications Diphenhydramine HCl (Benadryl) 50 mg IVPUSH ONETIME ONE Stop: 04/13/20 20:03 Last Admin: 04/13/20 20:02 Dose: 50 mg Documented by: Diphenhydramine HCl (Benadryl) Confirm Administered Dose 50 mg .ROUTE .STK-MED ONE Stop: 04/13/20 20:03 Last Admin: 04/13/20 21:37 Dose: Not Given Documented by: Diphenhydramine HCl (Benadryl) 50 mg IVPUSH ONETIME ONE Stop: 04/14/20 03:30 Last Admin: 04/14/20 03:30 Dose: 50 mg Documented by: Diphtheria/Tetanus/Acell Pertussis (Adacel) 0.5 ml IM .ONCE ONE Stop: 04/13/20 18:45 Last Admin: 04/13/20 23:00 Dose: 0.5 ml Documented by: Etomidate (Amidate) 20 mg IVPUSH ONETIME ONE Stop: 04/14/20 09:20 Last Admin: 04/14/20 09:19 Dose: 20 mg Documented by: Etomidate (Amidate) 20 mg IVPUSH ONETIME ONE Stop: 04/14/20 09:28 Last Admin: 04/14/20 09:27 Dose: 20 mg Documented by: Etomidate (Amidate) 40 mg IVPUSH ONETIME ONE Stop: 04/14/20 14:06 Last Admin: 04/14/20 14:05 Dose: 40 mg Documented by: Fentanyl (Sublimaze) 100 mcg IVPUSH ONETIME ONE Stop: 04/14/20 09:39 Last Admin: 04/14/20 13:10 Dose: Not Given Documented by: Folic Acid (Folic Acid) 1 mg IV DAILY [facility] Last Admin: 04/19/20 09:24 Dose: 1 mg Documented by: Furosemide (Lasix) 20 mg IVPUSH ONETIME STA Stop: 04/15/20 09:53 Last Admin: 04/15/20 09:56 Dose: 20 mg Documented by: Furosemide (Lasix) 40 mg IVPUSH NOW ONE Stop: 04/18/20 07:28 Last Admin: 04/18/20 08:08 Dose: 40 mg Documented by: Furosemide (Lasix) 20 mg IVPUSH ONETIME ONE Stop: 04/18/20 19:33 Last Admin: 04/18/20 19:50 Dose: 20 mg Documented by: Haloperidol Lactate (Haldol) 2 mg IVPUSH Q4HR PRN PRN Reason: withdrawl symptoms Last Admin: 04/19/20 00:29 Dose: 2 mg Documented by: Hydralazine HCl (Apresoline) 10 mg IVPUSH ONETIME ONE Stop: 04/18/20 17:46 Last Admin: 04/18/20 18:28 Dose: 10 mg Documented by: Lactated Ringer's (Ringers, Lactated) 1,000 mls @ 125 mls/hr IV ASDIRECTED [facility] Lactated Ringer's (Ringers, Lactated) 1,000 mls @ 1,000 mls/hr IV .BOLUS ONE Stop: 04/13/20 19:45 Last Admin: 04/13/20 19:25 Dose: 1,000 mls/hr Documented by: Thiamine HCl 1,000 mg/Magnesium Sulfate 1 gm/ Folic Acid 1 mg/ Dextrose/Sodium Chloride 1,012.2 mls @ 126.525 mls/hr IV ONETIME ONE Stop: 04/14/20 17:29 Last Admin: 04/14/20 10:36 Dose: 126.525 mls/hr Documented by: Lactated Ringer's (Ringers, Lactated) 1,000 mls @ 125 mls/hr IV ASDIRECTED [facility] Last Admin: 04/15/20 11:07 Dose: 125 mls/hr Documented by: Midazolam HCl 100 mg/ Premix 100 mls @ 1.35 mls/hr IV TITRATE [facility]; Protocol Last Titration: 04/18/20 08:17 Dose: 0 mg/kg/hr, 0 mls/hr Documented by: Fentanyl 2,500 mcg/ Sodium (Chloride) 250 mls @ 6.75 mls/hr IV TITRATE [facility]; Protocol Last Titration: 04/18/20 07:05 Dose: 0 mcg/kg/hr, 0 mls/hr Documented by: Thiamine HCl 1,000 mg/ Folic Acid 1 mg/ Dextrose/Sodium Chloride 1,010.2 mls @ 126.275 mls/hr IV ONETIME ONE Stop: 04/15/20 17:59 Last Admin: 04/15/20 10:29 Dose: 126.275 mls/hr Documented by: Propofol (Diprivan 100 Ml) 100 mls @ 2.028 mls/hr IV TITRATE [facility]; Protocol Last Titration: 04/18/20 07:47 Dose: 0 mcg/kg/min, 0 mls/hr Documented by: Piperacillin Sod/Tazobactam (Sod 4.5 gm/ Sodium Chloride) 100 mls @ 200 mls/hr IV ONETIME ONE Stop: 04/15/20 12:41 Last Admin: 04/15/20 13:04 Dose: 200 mls/hr Documented by: Piperacillin Sod/Tazobactam (Sod 4.5 gm/ Sodium Chloride) 100 mls @ 25 mls/hr IV Q8H [facility] Stop: 04/18/20 17:00 Last Admin: 04/18/20 11:53 Dose: 25 mls/hr Documented by: Levetiracetam 250 mg/ Sodium (Chloride) 102.5 mls @ 400 mls/hr IV ONETIME ONE Stop: 04/15/20 14:08 Last Admin: 04/15/20 14:59 Dose: 400 mls/hr Documented by: Levetiracetam 1,000 mg/ Sodium (Chloride) 110 mls @ 400 mls/hr IV Q12H [facility] Last Admin: 04/18/20 01:37 Dose: 400 mls/hr Documented by: Lactated Ringer's (Ringers, Lactated) 1,000 mls @ 250 mls/hr IV ASDIRECTED [facility] Lactated Ringer's (Ringers, Lactated) 1,000 mls @ 100 mls/hr IV ASDIRECTED [facility] Last Admin: 04/16/20 13:35 Dose: 100 mls/hr Documented by: Sodium Chloride (Normal Saline) Confirm Administered Dose 1,000 mls @ as directed .ROUTE .STK-MED ONE Stop: 04/16/20 08:28 Last Admin: 04/16/20 11:42 Dose: Not Given Documented by: Sodium Chloride (Normal Saline) Confirm Administered Dose 500 mls @ as directed .ROUTE .[facility]-MED ONE Stop: 04/16/20 08:30 Last Admin: 04/16/20 11:57 Dose: Not Given Documented by: Midazolam HCl 83 mg/ Premix 83 mls @ 15 mls/hr IV TITRATE [facility]; Protocol Stop: 04/16/20 22:31 Last Admin: 04/16/20 19:00 Dose: 15 mg/hr, 15 mls/hr Documented by: Sodium Chloride (Normal Saline) 500 mls @ 10 mls/hr IV ASDIRECTED ONE Stop: 04/18/20 13:52 Last Admin: 04/16/20 10:45 Dose: 10 mls/hr Documented by: Dextrose/Lactated Ringer's (Dextrose 5%-Lactated Ringers) 1,000 mls @ 150 mls/hr IV ASDIRECTED [facility] Last Infusion: 04/17/20 12:18 Dose: 50 mls/hr Documented by: Thiamine HCl 100 mg/ Sodium (Chloride) 101 mls @ 202 mls/hr IV ONETIME ONE Stop: 04/16/20 16:46 Last Admin: 04/16/20 18:24 Dose: 202 mls/hr Documented by: Phenytoin Sodium 250 mg/ (Sodium Chloride) 105 mls @ 420 mls/hr IV Q12H [facility] Lactated Ringer's (Ringers, Lactated) 1,000 mls @ 999 mls/hr IV .BOLUS ONE Stop: 04/16/20 18:58 Last Admin: 04/16/20 17:57 Dose: 999 mls/hr Documented by: Lactated Ringer's (Ringers, Lactated) 1,000 mls @ 150 mls/hr IV ONETIME ONE Stop: 04/17/20 00:37 Last Admin: 04/16/20 18:05 Dose: 150 mls/hr Documented by: Lactated Ringer's (Ringers, Lactated) Confirm Administered Dose 1,000 mls @ as directed .ROUTE .STK-MED ONE Stop: 04/16/20 17:57 Last Admin: 04/16/20 19:41 Dose: Not Given Documented by: Midazolam HCl 83 mg/ Premix 83 mls @ 15 mls/hr IV TITRATE [facility]; Protocol Stop: 04/17/20 05:26 Potassium Chloride 10 meq/ (Premix) 100 mls @ 100 mls/hr IV Q1H [facility] Stop: 04/17/20 15:29 Last Admin: 04/17/20 15:02 Dose: 100 mls/hr Documented by: Magnesium Sulfate 4 gm/ Premix 50 mls @ 12.5 mls/hr IV ONETIME ONE Stop: 04/17/20 14:29 Last Admin: 04/17/20 10:37 Dose: 12.5 mls/hr Documented by: Lactated Ringer's (Ringers, Lactated) 1,000 mls @ 50 mls/hr IV ASDIRECTED [facility] Last Admin: 04/17/20 18:55 Dose: 50 mls/hr Documented by: Levetiracetam 1,000 mg/ Sodium (Chloride) 110 mls @ 400 mls/hr IV Q12H [facility] Last Admin: 04/18/20 10:38 Dose: 400 mls/hr Documented by: Potassium Phosphate 60 mmole/ (Sodium Chloride) 1,020 mls @ 102 mls/hr IV ONETIME ONE Stop: 04/18/20 20:59 Last Admin: 04/18/20 10:58 Dose: 102 mls/hr Documented by: Ceftriaxone Sodium 2 gm/ (Sodium Chloride) 100 mls @ 200 mls/hr IV Q24H [facility] Last Admin: 04/20/20 20:41 Dose: 200 mls/hr Documented by: Magnesium Sulfate 4 gm/ Premix 50 mls @ 12.5 mls/hr IV ONETIME ONE Stop: 04/19/20 14:59 Last Admin: 04/19/20 11:40 Dose: 12.5 mls/hr Documented by: Potassium Chloride 10 meq/ (Premix) 100 mls @ 100 mls/hr IV Q1H [facility] Stop: 04/19/20 13:59 Last Admin: 04/19/20 13:42 Dose: 100 mls/hr Documented by: Lactated Ringer's (Ringers, Lactated) 1,000 mls @ 999 mls/hr IV BOLUS ONE Stop: 04/19/20 19:51 Last Admin: 04/19/20 18:58 Dose: 999 mls/hr Documented by: Ketamine HCl (Ketalar) 500 mg IV ONETIME ONE Stop: 04/14/20 09:39 Last Admin: 04/14/20 09:45 Dose: 500 mg Documented by: Ketamine HCl (Ketalar) 500 mg IM ONETIME ONE Stop: 04/14/20 14:06 Last Admin: 04/14/20 14:45 Dose: Not Given Documented by: Ketamine HCl (Ketalar) 500 mg IV ONETIME ONE Stop: 04/14/20 14:06 Last Admin: 04/14/20 14:05 Dose: 500 mg Documented by: Labetalol HCl (Normodyne) 10 mg IVPUSH ONETIME ONE; Protocol Stop: 04/18/20 08:50 Last Admin: 04/18/20 08:56 Dose: 10 mg Documented by: Lidocaine HCl (Xylocaine 1%) Confirm Administered Dose 10 ml .ROUTE .STK-MED ONE Stop: 04/14/20 00:42 Last Admin: 04/14/20 04:05 Dose: 10 ml Documented by: Lorazepam (Ativan) 2 mg IVPUSH ONETIME ONE Stop: 04/13/20 19:30 Last Admin: 04/13/20 19:34 Dose: 2 mg Documented by: Lorazepam (Ativan) Confirm Administered Dose 2 mg .ROUTE .STK-MED ONE Stop: 04/13/20 19:29 Last Admin: 04/13/20 19:34 Dose: Not Given Documented by: Lorazepam (Ativan) 2 mg IVPUSH ONETIME ONE Stop: 04/13/20 19:50 Last Admin: 04/13/20 19:52 Dose: 2 mg Documented by: Lorazepam (Ativan) 2 mg IVPUSH ONETIME ONE Stop: 04/13/20 21:36 Last Admin: 04/13/20 19:47 Dose: 2 mg Documented by: Lorazepam (Ativan) 2 mg IVPUSH ONETIME ONE Stop: 04/14/20 02:06 Last Admin: 04/14/20 03:03 Dose: 2 mg Documented by: Lorazepam (Ativan) Confirm Administered Dose 2 mg .ROUTE .STK-MED ONE Stop: 04/14/20 02:07 Last Admin: 04/14/20 04:04 Dose: Not Given Documented by: Lorazepam (Ativan) Confirm Administered Dose 4 mg .ROUTE .STK-MED ONE Stop: 04/14/20 03:52 Last Admin: 04/14/20 04:04 Dose: Not Given Documented by: Lorazepam (Ativan) 2 mg IVPUSH ONETIME ONE Stop: 04/14/20 04:06 Last Admin: 04/14/20 03:30 Dose: 2 mg Documented by: Lorazepam (Ativan) 2 mg IVPUSH ONETIME ONE Stop: 04/14/20 14:01 Last Admin: 04/14/20 14:00 Dose: 2 mg Documented by: Midazolam HCl (Versed 1 Mg/Ml) Confirm Administered Dose 2 mg .ROUTE .STK-MED ONE Stop: 04/14/20 03:43 Last Admin: 04/14/20 04:05 Dose: Not Given Documented by: Midazolam HCl (Versed 1 Mg/Ml) Confirm Administered Dose 4 mg .ROUTE .STK-MED ONE Stop: 04/14/20 03:46 Last Admin: 04/14/20 04:05 Dose: Not Given Documented by: Midazolam HCl (Versed 1 Mg/Ml) 4 mg IVPUSH ONETIME ONE Stop: 04/14/20 04:02 Last Admin: 04/14/20 03:40 Dose: 4 mg Documented by: Midazolam HCl (Versed 1 Mg/Ml) 2.5 mg IVPUSH ONETIME ONE Stop: 04/14/20 09:15 Last Admin: 04/14/20 09:14 Dose: 2.5 mg Documented by: Midazolam HCl (Versed 1 Mg/Ml) 7.5 mg IVPUSH ONETIME ONE Stop: 04/14/20 09:39 Last Admin: 04/14/20 09:38 Dose: 7.5 mg Documented by: Midazolam HCl (Versed 1 Mg/Ml) 5 mg IVPUSH ONETIME ONE Stop: 04/14/20 14:01 Last Admin: 04/14/20 14:00 Dose: 5 mg Documented by: Olanzapine (Zyprexa) 5 mg IM ONETIME ONE Stop: 04/13/20 19:52 Last Admin: 04/13/20 19:51 Dose: 5 mg Documented by: Olanzapine (Zyprexa) Confirm Administered Dose 10 mg .ROUTE .STK-MED ONE Stop: 04/13/20 19:52 Last Admin: 04/13/20 21:37 Dose: Not Given Documented by: Olanzapine (Zyprexa) 5 mg IM ONETIME ONE Stop: 04/14/20 02:06 Last Admin: 04/14/20 03:03 Dose: 5 mg Documented by: Pantoprazole Sodium (Protonix Iv) 40 mg IVPUSH Q24H [facility] Last Admin: 04/17/20 10:09 Dose: 40 mg Documented by: Phenytoin Sodium (Phenytoin) 500 mg IVPUSH Q8H [facility] Stop: 04/17/20 09:01 Last Admin: 04/16/20 17:15 Dose: 500 mg Documented by: Propofol (Diprivan 20 Ml) 200 mg IVPUSH ONETIME ONE Stop: 04/14/20 14:09 Last Admin: 04/14/20 14:08 Dose: 200 mg Documented by: Quetiapine Fumarate (Seroquel) 25 mg PO ONETIME ONE Stop: 04/19/20 10:01 Last Admin: 04/19/20 09:28 Dose: 25 mg Documented by: Succinylcholine Chloride (Quelicin) 200 mg IV ONETIME ONE Stop: 04/14/20 09:21 Last Admin: 04/14/20 09:20 Dose: 200 mg Documented by: Thiamine HCl (Vitamin B-1) 100 mg IVPUSH DAILY [facility] Last Admin: 04/19/20 08:46 Dose: 100 mg Documented by: - Exam Quality Assessment: Denies: Supplemental Oxygen General: Reports: Alert, Oriented HEENT: Reports: Pupils Equal, EOMI, Mucous Membr. Moist/[place] Neck: Reports: Supple Lungs: Reports: Clear to Auscultation, Normal Respiratory Effort Cardiovascular: Reports: Regular Rate, Regular Rhythm GI/Abdominal Exam: Normal Bowel Sounds, Soft, Non-Tender, No Organomegaly, No Distention, No Abnormal Bruit Extremities: Normal Inspection, Normal Range of Motion, Non-Tender, No Pedal Edema, Normal Capillary Refill Skin: Reports: Warm, Dry, Intact Psy/Mental Status: Reports: Alert, Normal Affect, Normal Mood
--- NOTE | 2020-04-22 13:23 | CONS ---
CONSULTING PHYSICIAN: Ravinder Smith MD DATE OF CONSULTATION: 04/20/2020 Site where the services are provided are [facility] in [place], [place]. Site where the services are provided from our offices in [facility]. Length of service for this 60-minute inpatient telemedicine event is 60 minutes. IDENTIFICATION: The patient is a 45-year-old male who was admitted to the inpatient MICU at [facility] in [place], [place]. He is seen for psychiatric consultation per the request of staff attending, Dr. Jacome, and his treatment team. CHIEF COMPLAINT: "I was walking with my parents and I just collapsed in [facility]." HISTORY OF PRESENT ILLNESS: The patient is a 45-year-old male who was admitted to the inpatient MICU on 04/13/2020 for concerns about severe alcohol withdrawal. In fact, the patient was actually intubated after arriving on the unit and was only recently extubated a couple of days ago. Per staff report, the patient relapsed after about 10 years of sobriety. He was drinking for 3 months pretty heavily after apparently going through a divorce and then having some job and financial difficulties. He had a BAL of 0.00 on admission, but reports he was drinking quite heavily up to a couple of days before admission. On interview, the patient states he was only drinking 3 beers a day. He states he gets "sad sometimes," but generally endorses good sleep and good appetite. He is denying that he has a drinking problem. He does note, however, that he had thought about going to , and when asked why if he did not think he had a drinking problem, he states "just to see if I could quit." The patient is alert and oriented x2 to person and place, but not to date. He denies any suicide or homicide. He denies any psychotic, delusional, or paranoid symptoms. He does not feel that he needs any psychiatric medications at this point in time. MEDICATIONS: At time of presentation, none. ALLERGIES: No known drug allergies. PAST MEDICAL HISTORY: The patient is denying, but signs and symptoms of alcohol withdrawal. REVIEW OF SYSTEMS: Aside from neuro, all other major organ systems are negative at this point in time for acute difficulties or complications. PAST PSYCHIATRIC AND CD HISTORY: The patient denies any previous psychiatric hospitalizations, but he reports 2 chemical dependency treatments way back in 1998. He states he has 1 DWI from 2012 that was adjudicated. Denies any suicide attempts. Denies any past psychiatric medication history. SOCIAL HISTORY: The patient was born in [place], lived in [place] until 11 years of age, and then moved to the [facility] and grew up in [facility]. 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. He was x1 for 2-1/2 years, but he states he has been for a number of years now. He has 1 child from the marriage, an 18-year-old boy. He is not involved in current relationships. He states he lives in [place] with his parents. He denies any legal issues. He denies any service. He states he was raised both by [employer] and [place]. His [employer] mother is [place]. He states he enjoys playing cards with his parents and bowling. MENTAL STATUS EXAM: The patient is a 45-year-old male of [place] descent from [place] originally in no apparent distress. Speech is of regular rate and rhythm. The patient is cognitively oriented x2 to person and place, but not to date. Mood is tired. Affect is cooperative, but perhaps just a little confused and somewhat argumentative mildly about the possibility of having a drinking problem. There is no behavioral or stated evidence of acute suicidal or homicidal ideation or acute psychotic, delusional, or paranoid symptoms. Thought processes are significant for some mild thought blocking. However, there are no manic symptoms, loose associations evident. Judgment and insight appear unimpaired at this point in time. Motivation for help appears poor to fair. VITALS: 117/99, 102, 16, 98.6 degrees. IMPRESSION: [place] I: 1. Alcohol dependence, F10.20. 2. Depression, not otherwise specified, F32.9. 3. Rule out major depressive disorder. [place] II: None. [place] III: Signs and symptoms of alcohol withdrawal with recent extubation. [place] IV: Severe. [place] V: 55. PLAN: 1. Sobriety. 2. AA rep to visit the patient. 3. Would begin a trial of Seroquel 50 mg at bedtime. Schedule while on unit to help with clarity of thought, elimination of any possible breakthrough psychotic or paranoid symptoms, as well as to help with sleep initiation, maintenance of anxiety reduction, and we will continue this medication upon discharge until he can follow up with Outpatient Psychiatry. 4. Would recommend discharging to residential treatment for his alcohol dependence if possible when he is medically stabilized. 5. Would recommend that the patient follow up with Outpatient Psychiatry to assess his overall function efficacy of his recommended psychiatric medication regimen. 6. Ativan per CIWA protocol while on unit. 7. Folic acid supplementation while on unit. 8. Thiamine supplementation while on unit. 9. Could consider Topamax medication while on unit to help with seizure prophylaxis. 10.Would recommend that if the patient presents in similar circumstances, would strongly consider committing the patient in the future for CD treatment if he is refusing to go, but it does not appear that he is holdable at this point in time based on his initial presentation, the way he is recovering. 11.Medication compliance. 12.We will continue followup with the patient on an as-needed basis while he remains on the inpatient MICU at [facility] in [place], [place]. 13.We will follow up with the patient sooner if any complications in the interim. 14.Crisis plan is in place. BRENDAN /[id number]
== END 2020-04-21 12:45 | DRG 896 ==
LOC: JD.ED 18:28 → JD.ICU 04-14 05:12
PROVIDERS: ADMIT Internal Medicine; ATTEND Internal Medicine
PROC: 0BH17EZ Insertion of Endotracheal Airway into Trachea, Via Natural or Artificial Opening (ICD-10-PCS; principal; 2020-04-15)
PROC: 5A1945Z Respiratory Ventilation, 24-96 Consecutive Hours (ICD-10-PCS; 2020-04-15)
DX: F10.231 Alcohol dependence with withdrawal delirium (principal); J69.0 Pneumonitis due to inhalation of food and vomit; N17.9 Acute kidney failure, unspecified; E87.2 Acidosis; E87.0 Hyperosmolality and hypernatremia; I95.2 Hypotension due to drugs; E55.9 Vitamin D deficiency, unspecified; E16.2 Hypoglycemia, unspecified; R56.9 Unspecified convulsions; D69.6 Thrombocytopenia, unspecified; S01.81XA Laceration without foreign body of other part of head, initial encounter; R94.5 Abnormal results of liver function studies; F32.9 Major depressive disorder, single episode, unspecified; Z91.19 Patient's noncompliance with other medical treatment and regimen; Y90.0 Blood alcohol level of less than 20 mg/100 ml
CPT/HCPCS: 12013; 36415; 36600; 51702; 70450; 70450-26; 74018; 74018-26; 80048; 80053; 80177; 80306; 80307; 81001; 82248; 82306; 82550; 82607; 82746; 82803; 82962; 83540; 83605; 83735; 84100; 84145; 84466; 84478; 85007; 85025; 85027; 85045; 85379; 86140; 87040; 87070; 87088; 87186; 87205; 90471; 90715; 93005; 94002; 94003; 95813; 96361; 96372; 96374; 96375; 96376; 97116-GP; 97162-GP; 97165-GO; 99285-25; A9270-GY; C9113; J0330; J0360; J0696; J1165; J1200; J1630; J1650; J1885; J1940; J1953; J2001; J2060; J2250; J2543; J2704; J3010; J3411; J3475; J3480; J3490; J7030; J7040; J7042; J7050; J7120; J7121